=== PATIENT | male | born 1950 | race Caucasian/White ===

== ENCOUNTER 2022-10-02 10:22 | Day surgery (SDC) | payer MEDICARE, BC, SELFPAY ==
[2022-10-02] MEDS: KETOROLAC OPHTH 0.5% 1 DROP EYE-LEFT ×2 (10:35→10:40)
[2022-10-02] MEDS: TETRACAINE 0.5% OPHTH 1 DROP EYE-LEFT ×2 (10:35→10:40)
[2022-10-02 10:44] VITALS: BMI 29.7
[2022-10-02 11:05] VITALS: BP 162/89; PULSE 72; RESP 20; TEMP 36.8; O2SAT 96
[2022-10-02] MEDS: SODIUM CHLORIDE 0.9 % (FLUSH) 10 ML SYRINGE IVF (11:07)
[2022-10-02] MEDS: TETRACAINE 0.5% OPHTH 2 DROP EYE-LEFT (11:28)
--- NOTE | 2022-10-02 11:32 | P.ANES_ITS ---
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
[2022-10-02] MEDS: BALANCED SALT IRRIG SOLN 15 ML EYE-LEFT (11:33)
--- NOTE | 2022-10-02 11:36 | W.ANESCHARGE ---
Anesthesia Charges Start Date/Time Anesthesia Start Date: 10/02/22 Anesthesia Start Time: 11:25 Stop Date/Time Anesthesia Stop Date: 10/02/22 Anesthesia Stop Time: 12:00 Summary Extremes of Age - Over 70 or under 1: MDA
[2022-10-02 12:08] VITALS: BP 118/73; PULSE 62; RESP 16; TEMP 36.3; O2SAT 98
--- NOTE | 2022-10-02 12:48 | P.OPTPRC_ITS ---
Procedure Note Date of procedure: 10/02/22 Will [facility] bill your pro fee for this procedure?: Yes Procedure Description: SURGEON: Deysi De Jesus MD PREOPERATIVE DIAGNOSIS: Nuclear sclerotic cataract, left eye. POSTOPERATIVE DIAGNOSIS: Nuclear sclerotic cataract, left eye. NAME OF OPERATION: Phacoemulsification of cataract with posterior chamber intraocular lens implantation in the left eye. ANESTHESIA: Topical. ESTIMATED BLOOD LOSS: Less than 2 cc. COMPLICATIONS: None. PATHOLOGY SPECIMEN: None. INDICATIONS: See consult note for details. The risks, benefits and alternatives of the procedure were explained to the patient, who elected to proceed and sign ed informed consent to do so. PROCEDURE: The patient was brought to the pre-holding area where the left eye was identified as the operative eye. I placed my initials above this eye. The patient received eye drops consisting of 0.5% tetracaine, 1% tropicamide, 10% phenylephrine, and 0.5% ketorolac. The patient was then brought to the operating room where the left eye was again identified as the operative eye. The eye was prepped with Betadine and draped in the usual sterile ophthalmic fashion. A #15 super-sharp blade was used to create a paracentesis site. 1% non-preserved intracameral lidocaine was injected into the anterior chamber. Endocoat was injected into the anterior chamber. A 2.4 mm keratome was used to create a three-plane self-sealing incision 1 mm anterior to the temporal limbus. A cystotome was used to create an anterior capsular leaflet. The Utrata forceps were used to extend this to form a continuous curvilinear capsulorrhexis. Hydrodissection was performed. The cataract was removed with phacoemulsification using the [id number]-[id number] technique. The irrigation and aspiration tip was used to remove the remaining cortex. Healon was injected into the capsular bag. An KATLYN ZCB00 intraocular lens of 17.5 diopters was injected into the capsular bag. The irrigation and aspiration tip was used to remove the remaining viscoelastic. Balanced salt solution on a cannula was used to hydrate the wound, and the wound was found to be watertight. The pupil was noted to be round. DISPOSITION: The patient was taken to the recovery room and discharged to home in stable condition. The patient was instructed to call me or go to the emergency department with any sudden change, including dramatic loss of vision, severe pain in the eye or eyebrow region, nausea, or vomiting. The patient will follow up in the clinic tomorrow morning.
== END 2022-10-02 12:25 | disposition home or self-care (01) ==
LOC: OR 10:24
PROVIDERS: PCP Family Medicine; Visit Provider Ophthalmology
PROC: (CPT 66984; principal; 2022-10-02 10:30)
DX: H25.12 Age-related nuclear cataract, left eye (principal)
CPT/HCPCS: 66984; 00142; 99100; A9270; J2250; J3010; V2632

== ENCOUNTER 2022-10-16 09:40 | Day surgery (SDC) | payer MEDICARE, BC, SELFPAY ==
[2022-10-16] MEDS: TETRACAINE 0.5% OPHTH 1 DROP EYE-RIGHT ×2 (09:45→09:50)
[2022-10-16] MEDS: KETOROLAC OPHTH 0.5% 1 DROP EYE-RIGHT ×2 (09:45→09:50)
[2022-10-16] MEDS: SODIUM CHLORIDE 0.9 % (FLUSH) 10 ML SYRINGE IVF (10:00)
[2022-10-16 10:02] VITALS: BMI 29.7
[2022-10-16 10:08] VITALS: BP 125/84; PULSE 64; RESP 16; TEMP 36.4; O2SAT 97
--- NOTE | 2022-10-16 10:46 | W.ANESCHARGE ---
Anesthesia Charges Start Date/Time Anesthesia Start Date: 10/16/22 Anesthesia Start Time: 10:46 Stop Date/Time Anesthesia Stop Date: 10/16/22 Anesthesia Stop Time: 11:19 Summary Extremes of Age - Over 70 or under 1: MDA
[2022-10-16] MEDS: TETRACAINE 0.5% OPHTH 2 DROP EYE-RIGHT (10:49)
[2022-10-16] MEDS: BALANCED SALT IRRIG SOLN 15 ML EYE-RIGHT (10:54)
--- NOTE | 2022-10-16 11:19 | W.ANESCHARGE ---
Anesthesia Charges Start Date/Time Anesthesia Start Date: 10/16/22 Anesthesia Start Time: 10:46 Stop Date/Time Anesthesia Stop Date: 10/16/22 Anesthesia Stop Time: 11:19
--- NOTE | 2022-10-16 11:24 | W.PM.OPTPROC ---
Procedure Note Date of procedure: 10/16/22 Will [facility] bill your pro fee for this procedure?: Yes Procedure Description: SURGEON: Deysi De Jesus MD PREOPERATIVE DIAGNOSIS: Nuclear sclerotic cataract, right eye. POSTOPERATIVE DIAGNOSIS: Nuclear sclerotic cataract, right eye. NAME OF OPERATION: Phacoemulsification of cataract with posterior chamber intraocular lens implantation in the right eye. ANESTHESIA: Topical. ESTIMATED BLOOD LOSS: Less than 2 cc. COMPLICATIONS: None. PATHOLOGY SPECIMEN: None. INDICATIONS: See consult note for details. The risks, benefits and alternatives of the procedure were explained to the patient, who elected to proceed and signed informed consent to do so. PROCEDURE: The patient was brought to the pre-holding area where the right eye was identified as the operative eye. I placed my initials above this eye. The patient received eye drops consisting of 0.5% tetracaine, 1% tropicamide, 10% phenylephrine, and 0.5% ketorolac. The patient was then brought to the operating room where the right eye was again identified as the operative eye. The eye was prepped with Betadine and draped in the usual sterile ophthalmic fashion. A #15 super-sharp blade was used to create a paracentesis site. 1% non-preserved intracameral lidocaine was injected into the anterior chamber. Endocoat was injected into the anterior chamber. A 2.4 mm keratome was used to create a three-plane self-sealing incision 1 mm anterior to the temporal limbus. A cystotome was used to create an anterior capsular leaflet. The Utrata forceps were used to extend this to form a continuous curvilinear capsulorrhexis. Hydrodissection was performed. The cataract was removed with phacoemulsification using the fwywrf-doy-fqalrnd technique. The irrigation and aspiration tip was used to remove the remaining cortex. Healon was injected into the capsular bag. An KATLYN ZCB00 intraocular lens of 16.5 diopters was injected into the capsular bag. The irrigation and aspiration tip was used to remove the remaining viscoelastic. Balanced salt solution on a cannula was used to hydrate the wound, and the wound was found to be watertight. The pupil was noted to be round. DISPOSITION: The patient was taken to the recovery room and discharged to home in stable condition. The patient was instructed to call me or go to the emergency department with any sudden change, including dramatic loss of vision, severe pain in the eye or eyebrow region, nausea, or vomiting. The patient will follow up in the clinic tomorrow morning.
[2022-10-16 11:32] VITALS: BP 117/81; PULSE 58; RESP 16; TEMP 36.1; O2SAT 97
== END 2022-10-16 11:35 | disposition home or self-care (01) ==
PROVIDERS: PCP Family Medicine; Visit Provider Ophthalmology
PROC: (CPT 66984; principal; 2022-10-16 09:45)
DX: H25.11 Age-related nuclear cataract, right eye (principal)
CPT/HCPCS: 66984; 00142; 99100; A9270; J2250; J3010; V2632

== ENCOUNTER 2024-03-26 09:45 | Outpatient (RCR) | payer MEDICARE, BC, SELFPAY | END 2024-07-24 23:59 | disposition home or self-care (01) | PROVIDERS: PCP Family Medicine; Visit Provider Family Medicine | DX: M54.50 Low back pain, unspecified (principal); Z51.89 Encounter for other specified aftercare | CPT/HCPCS: 97110; 97140; 97162 ==

== ENCOUNTER 2024-06-01 20:43 | Emergency (ER) | payer MEDICARE, BC, SELFPAY ==
--- OUTSIDE RECORDS SUMMARY | 2024-06-01 20:45 | XMS_ITS | Clinical Summary ---
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 Medications No information available. Medications Administered No information available. Allergies, Adverse Reactions, Alerts No information available. Results Date Name Value Unit Range Flag Description Internal Other: Authorizatio n - OBS [email or web address] Yes Authoriza tion: Release of Information - Authorize [facility] - Payment and Healthcare Operations ROIAUTHOTHER Yes Authoriz ation: Release of Information - Authorize Others/Insurance - Payment and Healthcare Operations HIECONSENT Yes Consent To Release information to the Health Information Exchange (HIE) [email or web address] Yes Authorizat ion: Authorization for [facility] to leave messages, voicemail, send text messages, send emails AUTHRELHCARE Yes Authoriz ation: Release/Retrieval of Information to/from Healthcare Facilities, Pharmacy Benefit Payers and Providers AUTHPRIVPRAC Yes Authoriz ation: Notice of privacy practices AUTHBENEFIT Yes Authoriza tion: Assignment of Benefits and Payment Agreement Plan of Care No information available. Procedures Code Procedure Name Date Entry Date [id number]-96052 Nerve Conduction 7-8 studies [id number] EMG with NCS (5+ muscles) - 2 limbs 03/15 Vital Signs No information available. Immunizations No information available. Advance Directives No information available.
--- OUTSIDE RECORDS SUMMARY | 2024-06-01 20:45 | XMS_ITS | Data Portability ---
Author Organization [facility] Address [address] [place] [address] Care Team Providers Care Banking Manager Name Role Phone PATRICK DAVIS Primary Care Provider Assessment Encounter Date Assessment Date Assessment LastModified by Organization Details LastModified Time 06/04/2023 06/04/2023 72 yoM with elevated PSA, urinary frequency, urinary urgency. New diagnosis of Prostate Cancer Not available 06/04/2023 18:48:31 Plan of Treatment Reminders Order Date Submit Date Provider Last Modified By Organization Details Last Modified Time Details Appointments ESTABLI SHED 10 2024 11:30A M Dav fofana MD Not available Not available Not available Lab None recorde d. Referral radiati on oncolog ist referra l 2023 024 lani Whitaker MD, [address] [place], [address], 07/02/2023 11:36:[address] referra l 2023 024 lani Conde MD, [address] [place], [address], 07/02/2023 11:36:59 Procedures None recorde d. Surgeries prostat ectomy with bilater al pelvic lymph node dissect ion, robot assiste d laparos copic (SURG) 2023 024 [email or web address] Not available 07/03/2023 09:43:[address], abdomen + pelvis, w/ contras t 2023 [facility], [address], [place], [address], 06/18/2023 15:35:40 NM, bone scan, whole body 2023 [facility], [address], [place], [address], 06/18/2023 15:35:40 Medication Orders gentami emily 40 mg/mL injecti on solutio n 2023 [address] [place] [address] [place], [address], 06/04/2023 12:27:19 Patient TargetsNo targets recorded. Patient Instructions Encounter Date Encounter Id Patient Instructions Last Modified By Organization Details Last Modified Time 05/21/2023 [id number] Fourteen cores t cayden today, patient tolerated the procedure well. We reviewed return precautions, which include fever/chills/malaise. He will stay hydrated and alert his medical team of any issues with his recovery. I want to him to report to either Dr. Edge or myself in 2-3 weeks for biopsy results and next steps. Not available 05/21/2023 12:42:43 06/04/2023 [id number] I had a very nicole gthy discussion for over an hour with patient who was {{unaccompanied accom panied*}} regarding the characteristics of his high risk prostate cancer prostate cancer and the risks, benefits, rationale, implications and alternatives of the various management options. We discussed how patient's clinicopathologic characteristics including his prostate specific antigen level, digital rectal exam findings and biopsy grade place him in the high risk category according to NCCN criteria (PSA >20 ng/mL or isabel grade group 4/5 or clinical stage T3a or greater). We discussed about which treatments to use for prostate cancer at high risk for relapse depends on many factors, including technical issues, such as whether it is safe for the man to undergo an operation and whether the prostate is the appropriate size and in the appropriate position for radiation therapy. I spent considerable amount of time with patient emphasizing the limitations of currently available literature and guidelines and the absence of any randomized studies comparing surgery to radiation in men with intermediate- or high-risk prostate cancer; therefore, there is no clear answer about which approach is more likely to cure the disease. Perhaps most importantly, we spent significant time discussing the inordinately high biochemical relapse rate (as high as >50% in some series) following definitive treatment with curative intent in the high-risk prostate cancer cohort. While surgery or radiation may provide local control in the vast majority and even cure in select patients, the overwhelming majority of patients will still require some form of adjuvant therapy following either surgery or radiotherapy. I discouraged patient from considering primary androgen deprivation therapy since it is not curative and is associated with multiple side effects, such as hot flashes, osteoporosis, decreased libido, erectile dysfunction, and a potentially higher risk of diabetes and heart disease. I only briefly discussed the limited role of both active surveillance and focal therapy, neither of which are indicated in the management of high-risk prostate cancer. I strongly discouraged patient from pursuing either of these options given his inordinately high risk of prostate cancer disease progression and extraprostatic disease, respectively. We spent the bulk of our time discussing two major therapeutic options, which include radical prostatectomy and radiation therapy. We discussed the rationale of radical prostatectomy performed via either a robotic or open technique. The concepts of the surgery are removal of the pelvic lymph nodes and prostate, with nerve-sparing as deemed appropriate. These have both diagnostic and therapeutic intent. An important but evolving area of study is whether extended lymph-node dissection will improve the staging and curing of prostate cancer. When performed robotically, the operation is carried out through six small incisions and a 2.5-4 hour surgery associated with minimal blood loss, an overnight hospital stay, and 5-7 days of Espino catheterization. Major risk of the surgery are rare but do include bleeding, infection, adjacent organ injury, lymphocele, positive margins, severe pain and standard operative risks such as myocardial infarction, stroke, DVT, pneumonia, PE and even a 0.2% chance of . We discussed urinary incontinence following surgery. Approximately 10-20% of men will have nearly complete control of their urination when the catheter is removed, the median time to recovery is approximately 3-4 months but can take up to 12-18 months. Based on currently available data, approximately 96% of men will have excellent control of urination at one year following surgery. In regards to sexual function, I explained the median time to recovery of functional erections is 6-8 months but can take up to 18 months. Compared to low and select intermediate-risk prostate cancer patients who are candidates for aggressive bilateral nerve-sparing approaches, most high-risk patients are not candidates due to their high-grade, high-volume disease and primary intent of cure. Therefore, high-risk men undergoing [id number] radical prostatectomy may be at higher risk of postoperative erectile dysfunction. Furthermore, patient's baseline erectile function as measured by his International Index of Erectile Function questionnaire {{22-25: None* 17-21: Mild 12-16: Mild-Moderate 8-11: Moderate 1-7: Severe}} remains the single strongest predictor of eventual long-term erectile function. Following surgery, the PSA is expected to remain undetectable, but if it does rise there is a possibility of salvage curative radiation therapy, if deemed appropriate. We also discussed the rationale of radiation therapy, namely external beam radiation therapy combined with at least 18-36 months of concurrent androgen deprivation therapy. Radiation has been the most commonly used approach in men with high-risk prostate cancer, in part because of a concern that surgery may not be able to remove all the cancer in the prostate in some men. In all high-risk cases, hormone therapy is used with radiation therapy because this combination has been shown to be helpful in treating men who are at high risk for relapse. There is an excellent track success but can be associated with potential side effects which include urinary urgency, frequency, urethral stricture as well as the potential for erectile dysfunction and rectal irritation or frequency of bowel movements. I explained there is an approximately 2% chance of serious bladder or rectal toxicity as well as a very low risk of inducing a secondary malignancy. The potential downside of radiation is complete pathologic review and lack of reliable salvage curative options. Given patient's high risk disease and life-expectancy > 5 years, we discussed the indications for both nuclear medicine bone scan and abdominopelvic cross sectional imaging including advanced clinical stage (>cT2), Isabel score >8, prostate specific antigen > 10 ng/mL and probability of lymph node involvement > 10%. He will be scheduled for both a bone scan and CT abdomen/pelvis prior to follow-up. At the completion of our discussion, multiple questions with answered to the best of my ability. Patient was provided with a copy of his pathology report as well the [facility] ([facility] [place] [facility] Becca nomogram predicting his probability of disease extent, risk of recurrence and progression. Patient was also encouraged to seek a second opinion both with an outside Urologist as well as radiation oncologist to better assist him in his decision making. He appears to be very well informed about his cancer as well as the options. I explained to him that there is no matta in making a decision, and the most important thing is that he feels comfortable and educated regarding his options and ultimate choice. 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 Large gland, bothersome LUTS. Previous colorectal surgery, advanced age. I had a long discussion (at least a total of 30 minutes was spent in direct counseling) regarding the diagnosis of prostate cancer and its treatment options. I told him that prostate cancer is the most common non-integumental cancer in men in the [place] and that with PSA screening and emerging public awareness of the disease, prostate cancer is being diagnosed with greater frequency and at an earlier stages. We briefly discussed the challenges regarding PSA screening for prostate cancer. We discussed the treatment options for localized disease, reviewing the potential complications and advantages of each therapeutic modality. We discussed that for some men, watchful waiting or active surveillance may be an appropriate option. Prostate cancer can often behave in an indolent manner, and for those who have other comorbidities or advanced age, simply following the patient and reserving treatment for clinical symptoms may be the best option. Unfortunately, we cannot be certain which cancers will behave in this manner and which ones will be more aggressive. There is a risk of spread of the cancer and continued local growth if the cancer is not treated. This risk varies with grade and stage of disease at diagnosis, as well as possibly mutational information, co-morbidities and demographic information. We then discussed radiation therapy, both as external beam and interstitial brachytherapy. We talked about the potential side effects of radiation cystitis, radiation proctitis, impotence, fistula formation, and incontinence. We then discussed extirpation, specifically radical prostatectomy. This can be performed either open or robotic-assisted laparoscopically, with similar outcomes. We reviewed that there is a risk of bleeding requiring blood transfusion (about 5%), infection, wound complications, rectal injury, DVT/PE, erectile dysfunction (20-70%), bladder neck contracture (3%) and incontinence (severe enough to require further therapy in 3-5% at one year). One advantage of surgery is that we would be able to analyze the specimen and the regional lymph nodes, thereby knowing the true pathologic stage of the disease. This could allow us to better understand his prognosis, and guide decisions regarding adjuvant therapies such as radiation or hormone therapy. We also discussed other technologies, such as cryotherapy and proton beam therapy, though it is still too early to know what the long-term outcomes are for these treatments. I reviewed with the patient my opinion about HIFU, which at this time has a very narrow therapeutic value, and should be employed within the context of a study or conglomerated observation team. We discussed the surgical experience and perioperative management. I believe that he would be an appropriate candidate for a robotic-assisted laparoscopic approach utilizing the [employer] robotic system. He would have a catheter in place for about 7-10 days. A drain may be placed and removed prior to his discharge from the hospital, typically in about 1-2 days. I warned the patient that it is common to have some incontinence immediately after the catheter is removed, but this usually quickly improves. By 6 months, 80% of patients will have regained their continence, and nearly all patients by 1 year. I advocate strongly for PFPT to aid in resolution of post-prostatectomy incontinence. We also touched upon management for persistent incontinence, should that be a problem, including pads, artificial sphincters, and injectable therapies. Erectile function may take 1, even 2-3 years to improve, though this is variable. We reviewed my recommendation for aggressive post surgical penile rehabilitation. We talked about some of the treatments for erectile dysfunction, including oral therapies, injections, pump, and penile prosthetics. Postoperatively, I would continue to follow him at regular intervals with PSA s and exams to ensure that the prostate cancer does not come back, no matter which primary therapy is chosen. We discussed Fidencio's aforementioned risk factors for suboptimal outcome/recovery from RALP. He is leaning towards surgery, all questions answered. Not available 07/01/2023 17:12:38 08/29/2023 [id number] Remarkable recov fabi, good news on the path report, reviewed. Espino out, blaze out, discussed expectations, will begin PFPT soon, with me in 3 months. Not available 08/29/2023 14:04:09 03/26/2024 [id number] INOCENTE savanaFidencio made a remarkable recovery. I want to see him in 4 months for his 1 year visit. Not available 03/26/2024 13:12:39 Reason for Referral Referring Physician: John Paul Edge, Urology, Encounter Date: 06/04/2023 Urologist Referral for Malig nant tumor of prostate Referring Physician: John Paul Edge, Urology, Encounter Date: 06/04/2023 Results Created Date Observation Date Name Description Value Unit Range Abnormal Flag Note LastModifiedBy Organization Detail LastModifiedTime 06/24/19 24 2023 imagi ng/di agnos tic resul t No observ ation record ed. [facility] [address] [place], [address], 06/30/2023 15:22:13 06/24/19 24 2023 imagi ng/di agnos tic resul t No observ ation record ed. [facility] [address] [place], [address], 06/30/2023 15:22:13 Result Notes None recorded. Problems Name Problem SNOMED Code Status Onset Date Resolution Date Notes Provider Name and Address Organization Details Recorded Time Prostate specific antigen above reference range 861834313 Active 2011 R97.20 : Elevated prostate specific antigen [PSA] - Notes:his tory elevated PSA with negative biopsy DR Hopson 2007 Not Available [facility] 01:56:04 Malignant tumor of prostate 720928254 Active 2023 Dav Baird MD [address] [place] [address],[address], [address] , [facility] 4 17:10:46 Lower urinary tract symptoms due to benign prostatic hypertrop hy 42490538978 101 Active 2023 Dav Baird MD [address] [place] [address],[address], [phone] [place] [address] Urolog 17:10:59 Problem Notes None recorded. Procedures Surgical History Date Name Laterality Status Provider Name and Address Organization Details Recorded Time 08/06/19 24 PROSTATECTOMY WITH BILATERAL PELVIC LYMPH NODE DISSECTION, ROBOT ASSISTED LAPAROSCOPIC (SURG) completed Linda Levilindsey [facility] 08/22/2023 14:41:53 07/01/19 24 COMPLEX VISIT completed Dav Baird MD [address] [place] [address],[address] [address], [facility] 07/01/2023 17:10:40 05/21/19 24 Prostate Biopsy Procedure completed Dav Baird MD [address] [place] [address],[facility] [address] [place], [address] [place] [address] 05/21/2023 12:42:04 05/21/19 24 Gentamicin Injection completed Cindy Mobley [facility] 05/21/2023 10:27:31 05/21/19 24 URONAV completed Dav Baird MD [address] [place] [address],[address], [address], [facility] 05/21/2023 12:42:10 procedure on colon completed Delma Fairchild [facility] 02/26/2023 14:12:04 Hernia Repair completed Delma Fairchild [facility] 02/26/2023 14:12:13 Imaging Results Imaging Date Name Status LastModified by Organiz ation Details LastModified Time 2023 imaging/diag nostic result completed [facility] [address] [place] [address], [address], 06/30/2023 15:22:13 2023 imaging/diag nostic result completed [facility] [address], [address], 06/30/2023 15:22:13 Procedure Notes None recorded. Medical Equipment None Reported. Allergies Allergen ID Allergen Name Allergen Category Reaction Reaction Severity Criticality Documentation Date Start Date Code Code System Note Provider Name and Address Organization Details Recorded Time 040290 Medicinal product acting as adhesive (product) environme nt,medica tion Not available Not available Not available 09/02/20192014 86913 2009 SNOMED Not Available Not Available Not Available 456883 latex environme nt,medica tion Not available Not available Not available 09/02/20192014 09276 91 RxNorm Not Available Not Available Not Available 659188 Product containin g penicilli n (product) medicatio n Not available Not available Not available 09/02/20192011 49925 8001 SNOMED Not Available Not Available Not Available Medications Name Sig Start Date Stop Date Status Note LastModified by Organization Details LastModified Time flowflex covid-19 ag home t DIRECTED 06/03 completed Not Available Not Available Not Available azithromyci n 250 mg tablet TAKE 2 TABLETS BY MOUTH TODAY THEN 1 TABLET DAILY FOR 4 DAYS 06/03 completed Not Available Not Available Not Available ofloxacin 0.3 % eye drops INSTILL 1 DROP INTO THE OPERATIVE EYE FOUR TIMES A DAY STARTING FRIDAY BEFORE SURGERY. 06/03 completed Not Available Not Available Not Available sumatriptan 50 mg tablet TAKE 1 TABLET (50 MG) BY MOUTH EVERY 2 HOURS IF NEEDED FOR MIGRAINE. MAX DOSE: 200MG PER 24 HRS. 03/26 completed Not Available Not Available Not Available Enema Disposable 19 gram-7 gram/118 mL INSERT BY RECTAL ROUTE THE MORNING OF THE BIOPSY. 06/03 completed Not Available Not Available Not Available ciprofloxac in 500 mg tablet 03/26 completed Not Available Not Available Not Available aspirin 81 mg tablet,jeimy yed release Take 1 tablet every day by oral route. 03/26 completed Not Available Not Available Not Available ketorolac 0.5 % eye drops INSTILL 1 DROP INTO THE OPERATIVE EYE FOUR TIMES A DAY STARTING AFTER SURGERY. 06/03 completed Not Available Not Available Not Available potassium chloride ER 20 mEq tablet,exte nded release(par t/cryst) TAKE 1 TABLET (20 MEQ) BY MOUTH TWO TIMES DAILY WITH MEALS. 03/26 completed Not Available Not Available Not Available prednisolon e acetate 1 % eye drops,suspe nsion INSTILL 1 DROP INTO THE OPERATIVE EYE FOUR TIMES A DAY STARTING AFTER SURGERY. 06/03 completed Not Available Not Available Not Available olopatadine 0.1 % eye drops PLACE 1 DROP INTO BOTH EYES TWO TIMES DAILY. 06/03 completed Not Available Not Available Not Available hydrochloro thiazide 25 mg tablet TAKE 1 TABLET (25 MG) BY MOUTH ONCE DAILY. 03/26 completed Not Available Not Available Not Available Pepcid 20 mg tablet Take 1 tablet as needed by oral route. active Not Available Not Available No t Available levofloxaci n 500 mg tablet TAKE ONE TABLET BY MOUTH DAILY FOR 3 DAYS STARTING THE DAY BEFORE THE PROCEDURE 06/03 completed Not Available Not Available Not Available gentamicin 40 mg/mL injection solution Take 240 mg by injection route. 06/03 completed Not Available Not Available Not Available albuterol sulfate HFA 90 mcg/actuati on aerosol inhaler INHALE 2 PUFFS BY MOUTH EVERY 4 HOURS WHILE AWAKE. active Not Available Not Available No t Available losartan 100 mg tablet TAKE 1 TABLET (100 MG) BY MOUTH ONCE DAILY. 03/26 completed Not Available Not Available Not Available ipratropium bromide 21 mcg (0.03 %) nasal spray INHALE 2 SPRAYS INTO EACH NOSTRIL 3 TIMES DAILY. 03/26 completed Not Available Not Available Not Available rosuvastati n 20 mg tablet TAKE 1 TABLET (20 MG) BY MOUTH AT BEDTIME. active Not Available Not Available No t Available Vitamin C 03/26 completed Not Available Not Available Not Available Fish Oil 03/26 completed Not Available Not Available Not Available Imitrex 03/26 completed Not Available Not Available Not Available Colace 03/26 completed Not Available Not Available Not Available Claritin 03/26 completed Not Available Not Available Not Available Vitamin D 03/26 completed Not Available Not Available Not Available Tylenol as needed 03/26 completed Not Available Not Available Not Available potassium 06/03 completed Not Available Not Available Not Available Zyrtec active Not Available Not Availa ble Not Available Miralax as needed 03/26 completed Not Available Not Available Not Available Multi Vitamin 03/26 completed Not Available Not Available Not Available losartan potassium (bulk) 06/03 completed Not Available Not Available Not Available albuterol 90 mcg-budeson rox 80 mcg/actuati on HFA aerosol inhaler Inhale by inhalatio n route. active Not Available Not Available No t Available Vitals Date Recorded Body height Body mass index (BMI) Body weight Provider Name and Address Organization Details Last Updated DateTime 05/21/2023 177.8 cm 30.8 kg/m2 42305.36 g Cindy Lambbel [facility] 05/21/2023 10:26:07 Date Recorded Body height Body mass index (BMI) Body weight Provider Name and Address Organization Details Last Updated DateTime 06/04/2023 177.8 cm 30.8 kg/m2 30093.36 g Delma Fairchild [facility] 06/04/2023 12:27:13 Date Recorded Body height Body mass index (BMI) Body weight Provider Name and Address Organization Details Last Updated DateTime 07/01/2023 177.8 cm 30.8 kg/m2 05596.36 g Dav Baird MD [address] [place] [address],[address], [address] 07/01/2023 16:02:29 Date Recorded Body height Body mass index (BMI) Body weight Provider Name and Address Organization Details Last Updated DateTime 08/29/2023 177.8 cm 30.1 kg/m2 43879.4 g Dav Baird MD [address] [place] [address],[address], [address] [place] [address] 08/29/2023 12:37:27 Date Recorded Body height Body mass index (BMI) Body weight Provider Name and Address Organization Details Last Updated DateTime 03/26/2024 177.8 cm 30.1 kg/m2 77595.4 g Linda Mustafa [facility] 03/26/2024 12:36:11 Social History Question Answer Notes LastModified by Organizat ion Details LastModified Time Tobacco Smoking Status Never Smoker Delma Fairchild [facility] 02/26/2023 14:11:49 What Is Your Level Of Alcohol Consumption? Occasional Information not available 02/26/2023 Race White Information no t available 05/21/2023 Ethnicity Not / Information not available 05/21/2023 Preferred Language Japanese Information not available 05/21/2023 What Was The Date Of Your Most Recent Tobacco Screening? 03/26/2024 john Information not available 03/26/2024 Has Tobacco Cessation Counseling Been Provided? No Information not available 02/26/2023 Do You Or Have You Ever Used Any Other Forms Of Tobacco Or Nicotine? No Information not available 02/26/2023 How Many Days In The Past Year Have You Consumed 5 Or More Drinks? 0 Information not available 02/26/2023 Sex: Male Functional Status None recorded. Mental Status None recorded. Family History Relationship Description Onset Age of this Age Resolved Age Notes LastModified by Organization Details LastModified Time Brother Family history of malignant neoplasm of prostate rstromquist Not available 02/14 14:11:12 Medical History Condition Response Other Y High Blood Pressure Y Cancer Y High Cholesterol Y Immunizations Vaccine Type Date Status Note Provider Nam e and Address Organization Details Recorded Time Influenza, adjuvanted, trivalent, PF 7 completed Delma Stromquist null, [facility] 02/26/2023 14:07:19 Influenza, adjuvanted, trivalent, PF 8 completed Delma Stromquist null, [facility] 02/26/2023 14:07:19 zoster recombinant 9 completed Delma Stromquist null, [facility] 02/26/2023 14:07:19 zoster recombinant 9 completed Delma Stromquist null, [facility] 02/26/2023 14:07:19 Influenza, high-dose, quadrivalent, PF 2 completed Delma Stromquist null, [facility] 02/26/2023 14:07:19 Influenza, high-dose, quadrivalent, PF 3 completed Delma Stromquist null, [facility] 02/26/2023 14:07:19 Influenza, adjuvanted, quadrivalent, PF 0 completed Delma Stromquist null, [facility] 02/26/2023 14:07:19 Influenza, adjuvanted, quadrivalent, PF 1 completed Delma Stromquist null, [facility] 02/26/2023 14:07:19 COVID-19, mRNA, LNP-S, PF, 100 mcg/0.5mL dose or 50 mcg/0.25mL dose 1 completed Delma Stromquist null, [facility] 02/26/2023 14:07:19 COVID-19, mRNA, LNP-S, PF, 100 mcg/0.5mL dose or 50 mcg/0.25mL dose 1 completed Delma Stromquist null, [facility] 02/26/2023 14:07:19 COVID-19, mRNA, LNP-S, PF, 100 mcg/0.5mL dose or 50 mcg/0.25mL dose 2 completed Delma Stromquist null, [facility] 02/26/2023 14:07:19 COVID-19, mRNA, LNP-S, PF, 100 mcg/0.5mL dose or 50 mcg/0.25mL dose 1 completed Delma Stromquist null, [facility] 02/26/2023 14:07:19 COVID-19, mRNA, LNP-S, bivalent, PF, 50 mcg/0.5 mL or 25mcg/0.25 mL dose 2 completed Delma Stromquist null, [facility] 02/26/2023 14:07:19 COVID-19, mRNA, LNP-S, bivalent, PF, 30 mcg/0.3 mL dose 3 completed Delma Stromquist null, [facility] 02/26/2023 14:07:19 COVID-19, mRNA, LNP-S, PF, 50 mcg/0.5 mL 3 completed Delma Stromquist null, [facility] 02/26/2023 14:07:19 pneumococcal polysaccharide PPV23 0 completed Delma Stromquist null, [facility] 02/26/2023 14:07:19 pneumococcal polysaccharide PPV23 7 completed Delma Stromquist null, [facility] 02/26/2023 14:07:19 Tdap 1 completed Delma Stromquist null, [facility] 02/26/2023 14:07:19 Tdap 1 completed Delma Stromquist null, [facility] 02/26/2023 14:07:19 Novel [id number], all formulations 9 completed Delma Stromquist null, [facility] 02/26/2023 14:07:19 Pneumococcal conjugate PCV 13 5 completed Delma Stromquist null, [facility] 02/26/2023 14:07:19 zoster live 0 completed Delma Stromquist null, [facility] 02/26/2023 14:07:19 Influenza, high-dose, trivalent, PF 6 completed Delma Stromquist null, [facility] 02/26/2023 14:07:19 Influenza, high-dose, trivalent, PF 5 completed Delma Stromquist null, [facility] 02/26/2023 14:07:19 Influenza, split virus, trivalent, preservative 2 completed Delma Stromquist null, [facility] 02/26/2023 14:07:19 Influenza, split virus, trivalent, preservative 3 completed Delma Stromquist null, [facility] 02/26/2023 14:07:19 Influenza, split virus, trivalent, preservative 0 completed Delma Stromquist null, [facility] 02/26/2023 14:07:19 Influenza, split virus, trivalent, preservative 9 completed Delma Stromquist null, [facility] 02/26/2023 14:07:19 Influenza, split virus, trivalent, preservative 4 completed Delma Stromquist null, [facility] 02/26/2023 14:07:19 Influenza, split virus, trivalent, preservative 8 completed Delma Stromquist null, [facility] 02/26/2023 14:07:20 Influenza, split virus, trivalent, preservative 3 completed Delma Stromquist null, [facility] 02/26/2023 14:07:20 Influenza, split virus, trivalent, preservative 5 completed Delma Stromquist null, [facility] 02/26/2023 14:07:20 Influenza, split virus, trivalent, preservative 7 completed Delma Stromquist null, [facility] 02/26/2023 14:07:20 Influenza, split virus, trivalent, preservative 6 completed Delma Stromquist null, [facility] 02/26/2023 14:07:20 Influenza, split virus, trivalent, PF 1 [facility] 02/26/2023 14:07:20 Td (adult), 2 Lf tetanus toxoid, preservative free, adsorbed 4 completed [facility], [facility] 02/26/2023 14:07:20 Influenza, split virus, quadrivalent, PF 4 completed [facility], [facility] 02/26/2023 14:07:20 Influenza, split virus, quadrivalent, PF 9 completed [facility], [facility] 02/26/2023 14:07:20 COVID-19, mRNA, LNP-S, PF, 50 mcg/0.5 mL 4 completed Dav Baird MD [address] [place] [address],[address], [address], [facility] 08/29/2023 12:37:31 RSV, recombinant, protein subunit RSVpreF, adjuvant reconstituted, 0.5 mL, PF 4 completed Linda chavez, [facility] 03/26/2024 12:36:20 COVID-19, mRNA, LNP-S, PF, 50 mcg/0.5 mL 4 completed Linda chavez, [facility] 03/26/2024 12:36:20 Influenza, high-dose, trivalent, PF 4 completed Linda chavez, [place] - [facility] 03/26/2024 12:36:20 Past Encounters Encounter ID Performer Location Encounter Start Date Encounter Closed Date Diagnosis/Indication Diagnosis SNOMED-CT Code Diagnosis ICD10 Code Diagnosis Note [id number] John Paul [facility] [address] [place] [address] 02/26/2023 14:03:50 02/27/2023 13:22:40 Prostate specific antigen above reference range 304328669 R97.20 - PSA continues to rise- Previous ExactVu biopsy negative, as well as two negative standard template biopsies.- Obtain prostate MRI, pending results we will consider additional biopsy Increased frequency of urination 755912791 R35.0 - AUA SS: 7 (QOL 1) - Not bothersome enough to warrant treatment at this time. Urgent chaitanya tom to urinate [id number] R39.15 - As above [id number] [facility] [address] [facility] [address] [place] [address] 05/21/2023 09:55:29 05/21/2023 12:44:18 Prostate specific antigen above reference range 272510276 R97.20 [id number] MD TRAVIS [facility] [address] [place] [address] 06/04/2023 12:13:06 06/05/2023 08:53:40 Prostate specific antigen above reference range [id number] R97.20 - PSA continues to rise- Previous ExactVu biopsy negative, as well as two negative standard template biopsies.- Now s/p UroNav biopsy with Isabel [employer] manager branch Increased frequency of urination 505945584 R35.0 - AUA SS: 7 (QOL 1) - Not bothersome enough to warrant treatment at this time. Urgent chaitanya tom to urinate [id number] R39.15 - As above Malignant tumor of prostate 109182629 C61 - Isabel Grade [employer] II manager branch, high risk group due to PSA >20 ng/mL by NCCN guidelines - Obtain Staging work up with Bone Scan and CT A/P- Will have him see Radiation oncology and meet with Dr. Baird to discuss radical prostatect stevenson- See discussion below [id number] MD Keara Padrona [address] [place] [address] 07/01/2023 15:53:21 07/02/2023 15:25:13 Malignant tumor of prostate 812263375 C61 Lower urin samy tract symptoms due to benign prostatic hypertrophy 1543001836 9101 N40.1 History of malignant neoplasm of colon [id number] Z85.038 [id number] Dav Baird MD [facility] [address] [place] [address] 08/29/2023 12:09:12 09/08/2023 11:50:17 Malignant tumor of prostate [id number] C61 [id number] Dav Baird MD [facility] [address] [place] [address] 03/26/2024 12:31:57 03/29/2024 15:06:28 Malignant tumor of prostate [id number] C61 Health Concerns Section Related Observation LastModified by Organization Detai ls LastModified Time None Recorded Concern Status LastModified by Organization Details LastModified Time None Recorded Advance Directives Directive None Recorded Payers Encounter Date Sequence Insurance Name Policy Number Policy Rodriguez Covered Member ID Ordriguez Member ID Guarantor Name 05/21/2023 1 [place] [employer] Fidencio R Rose Mary [id number] Fidencio R Rose Mary 05/21/2023 2 [place] [employer] Fidencio R Rose Mary [id number] Fidencio R Rose Mary 06/04/2023 1 [place] [employer] Fidencio R Rose Mary [id number] Fidencio R Rose Mary 06/04/2023 2 [place] Fidencio R Rose Mary [id number] Fidencio R Rose Mary 07/01/2023 1 [place] [employer] Fidencio R Rose Mary [id number] Fidencio R Rose Mary 07/01/2023 2 [place] Fidencio R Rose Mary [id number] Fidencio R Rose Mary 08/29/2023 1 [place] [employer] Fidencio R Rose Mary [id number] Fidencio Bazzi 08/29/2023 2 [place] Fidencio Bazzi [id number] Fidencio Fofana Rose Mary 03/26/2024 1 [place] [employer] Fidencio Bazzi [id number] Fidencio Bazzi 03/26/2024 2 [place] Fidencio Bazzi [id number] Fidencio Bazzi Notes Date Note Type Note Provider Name and Address Organization Details Recorded Time 05/21/2023 text/html 72M here for Uro darion guided prostate biopsy, for elevated PSA. Previous worked up including two standard template biopsies and an Exact Vu Prostate biopsy which all proved negative. His PSA has continued to increase, most recently 24.4 ng/mL. Voiding symptoms: urinary urgency, urinary frequency. MRI showed 88 gram gland, quickly enlarged, with a PIRADS 3 lesion in the TZ. Dav Baird MD [address] [facility],[address], [place], [address], [facility] 05/21/2023 12:42:53 06/04/2023 text/html Referred back to day for elevated PSA. Previous worked up including two standard template biopsies and an Exact Vu Prostate biopsy which all proved negative. His PSA has continued to increase, most recently 24.4 ng/mL. Voiding symptoms: urinary urgency, urinary frequency. 06/04/23:Here for follow up pathology review following UroNav biopsy with Dr. Baird. Pathology reveals standard template cores benign, but targeted biopsies of PIRADS 3 lesion reveal Isabel 3+4. Seen today with his who provides some of the history. John Paul Edge MD [address] [facility],[address], [place], [address], [facility] 06/04/2023 18:48:40 07/01/2023 text/html 73M presents for prostate cancer follow up. Recent Uronav biopsy (88 grams, PIRADS3) showed targeted Isabel 3+4. PSA is 24. CT/bone scan negative. Previous worked up including two standard template biopsies and an Exact Vu Prostate biopsy which all proved negative. His PSA has continued to increase, most recently 24.4 ng/mL.Voiding symptoms: urinary urgency, urinary frequency. Mixed QOL and dropping. PSHx includes low (descending colon?) colorectal cancer surgery - with primary rectal re-anastomosis 10+ years ago. Met with rad-onc team who is offering XRT with short course ADT, if the patient requests. Dav Baird MD [address] [place] [address],[address], [place], [address], [facility] 07/01/2023 17:13:38 08/29/2023 text/html 73M presents for prostate cancer follow up. He is s/p RALP 08/06/23, with considerable KWAKU, extraordinary recovery was marred by hemorrhagic shock, take back ex-lap, no active bleeding found, but possibly from omental/mesenteric portion of KWAKU takedown which bled in a delayed manner, full recovery, arrives today for path review and Espino removal. Final path: Isabel 3+4, negative margins, negative nodes. DIAGNOSIS HISTORY:Recent Uronav biopsy (88 grams, PIRADS3) showed targeted Isabel 3+4. PSA is 24. CT/bone scan negative.Previous worked up including two standard template biopsies and an Exact Vu Prostate biopsy which all proved negative. His PSA has continued to increase, most recently 24.4 ng/mL.Voiding symptoms: urinary urgency, urinary frequency. Mixed QOL and dropping.PSHx includes low (descending colon?) colorectal cancer surgery - with primary rectal re-anastomosis 10+ years ago. Dav Baird MD [address] [facility],[address], [place], [address], [facility] 08/29/2023 14:04:15 03/26/2024 text/html 73M presents for prostate cancer follow up. He is s/p RALP 08/06/23, with considerable KWAKU, extraordinary recovery was marred by hemorrhagic shock, take back ex-lap, no active bleeding found, but possibly from omental/mesenteric portion of KWAKU take down which bled in a delayed manner, full recovery. PSA undetectable. Nearly completely dry, scant leakage. Final path: Isabel 3+4, negative margins, negative nodes. DIAGNOSIS HISTORY:-Recent Uronav biopsy (88 grams, PIRADS3) showed targeted Isabel 3+4. PSA is 24. CT/bone scan negative.-Previous worked up including two standard template biopsies and an Exact Vu Prostate biopsy which all proved negative. His PSA has continued to increase, most recently 24.4 ng/mL.-Voiding symptoms: urinary urgency, urinary frequency. Mixed QOL and dropping.-PSHx includes low (descending colon?) colorectal cancer surgery - with primary rectal re-anastomosis 10+ years ago. Dav Baird MD [address] [facility],[address], [place], [address], [facility] 03/26/2024 13:12:49
--- OUTSIDE RECORDS SUMMARY | 2024-06-01 20:45 | XMS_ITS | Clinical Summary ---
Author Organization [facility] Address [address] [place] [address] Care Team Providers Care Contract Specialist Name Role Phone Unavailable Primary Care Provider Unavailabl e Source Comments Patient records contain information from all sites at [facility]. For routine questions regarding patient records, call [phone] during business hours, M-F 8:00 AM - 5:00 PM Central Time. Record requests for emergency care only can be directed to [phone] at any time.[facility] Allergies Active Allergy Reactions Criticality Noted Date Comments Latex Hives (Reselect Reaction) Medium 11/15/2009 Unsure If latex or if it was the adhesive (it was tape) (red blotchiness and swelling , unsure if it was hives); Also, though, swelling in hand from rubber-type iron handle.; itchy, swollen hands from latex gloves Penicillins Hives (Reselect Reaction) 08/27/2006 Medications albuterol 90 mcg/actuation inhaler Inhale 2 puffs every 4 (four) hours. 3 Active ascorbic acid, vitamin C, (ascorbic acid) 500 mg tablet Take by mouth. 7 Active aspirin [address] tablet Take 1 tablet by mouth daily. 9 Active cholecalciferol (VITAMIN D3) 25 mcg (1,000 Unit) capsule Take 1 capsule by mouth daily. 1 Active docusate sodium (COLACE) 100 mg capsule Take 1 capsule by mouth 2 (two) times a day. 4 Active famotidine (PEPCID) 20 mg tablet Take 20 mg by mouth. 9 Active hydroCHLOROthia zide (HYDRODIURIL) 25 mg tablet Take 1 tablet by mouth daily. 3 Active ibuprofen (MOTRIN) 600 mg tablet Take 600 mg by mouth every 6 (six) hours as needed. 0 Active loratadine (CLARITIN) 10 mg tablet Take 1 tablet by mouth daily. 9 Active losartan (COZAAR) 100 mg tablet Take 1 tablet by mouth daily. 3 Active melatonin 3 mg tablet Take 1 tablet by mouth at bedtime. 3 Active multivitamin tablet Take 1 tablet by mouth daily. 9 Active olopatadine (PATANOL) 0.1 % ophthalmic solution Administer 1 drop into affected eye(s) 2 (two) times a day. 3 Active potassium chloride (KLOR-CON M/KDUR) 20 mEq ER tablet Take 20 mEq by mouth. 3 Active rosuvastatin (CRESTOR) 20 mg tablet Take 1 tablet by mouth at bedtime. 3 Active SUMAtriptan (IMITREX) 50 mg tablet Take 50 mg by mouth every 2 (two) hours as needed. 3 Active Active Problems Problem Noted Date Diagnosed Date Malignant Neoplasm Of Colon 06/10/2023 Cancer Staging:Pathologic:Stage IIIA(T1, N1a, cM0) - Unsigned Primary Malignant Neoplasm Of Prostate 4 Cancer Staging:Clinical stage from 05/22/2023:Stage IIIA(cT1c, cN0, cM0, PSA: 24.4, Grade Group: 2) - Unsigned Family History Medical History Relation Name Comments Prostate cancer Brother 1 [facility] previous treatment Relation Name Status Comments Brother 1 Brother 2 Nael Bazzi Social History Tobacco Use Types Packs/Day Years Used Date Smoking Tobacco: Never Smokeless Tobacco: Never Alcohol Use Standard Drinks/Week Comments Yes 0 (1 standard drink = 0.6 oz pur e alcohol) [facility] Utilities Answer Date Recorded In the past 12 months has [employer], oil, or water [place] [employer] threatened to shut off services in your home? No 06/26/2023 Exercise Vital Sign Answer Date Recorde d On average, how many days pe r week do you engage in moderate to strenuous exercise (like a brisk walk)? 3 days Minutes of Exercise per Session Not on file 06/26/2023 Hunger Vital Sign Answer Date Recorded Within the past 12 months, y ou worried that your food would run out before you got the money to buy more. Never true 06/26/19 24 Within the past 12 months, t he food you bought just didn't last and you didn't have money to get more. Never true 06/26/2023 PRAPARE - Transportation Answer Date Re corded In the past 12 months, has l ack of transportation kept you from medical appointments or from getting medications? No 06/15 In the past 12 months, has l ack of transportation kept you from meetings, work, or from getting things needed for daily living? No 06/26/2023 Nutrition Answer Date Recorded On average, how many serving s of fruits and vegetables do you eat per day (serving size is equal to 1 cup or approximately the size of a tennis ball)? 0-2 06/26/2023 Dental Answer Date Recorded Dental: Regular Dentist Yes 06/26/19 Employment Answer Date Recorded Employment status Retired 06/26/2023 Housing Stability Answer Date Recorded What is your living situation today? I have a [facility] place to live 06/26/2023 Sex and Gender Information Value Date Recorded Sex Assigned at Male 06/26/2023 12:55 PM CDT Legal Sex Male 12:37 PM CDT Gender Identity Male 06/26/2023 12:55 PM CDT Sexual Orientation Straight 06/26/2023 12 :55 PM CDT Last Filed Vital Signs Vital Sign Reading Time Taken Comments Blood Pressure 133/83 06/26/2023 1:01 PM CDT Pulse 66 06/26/2023 1:01 PM CDT Temperature 36.7 C (98 F) 06/26/2023 1:01 PM CDT Respiratory Rate - - Oxygen Saturation - - Inhaled Oxygen Concentration - - Weight 99.3 kg (218 lb 14.7 oz) 06/26/2023 1:01 PM CDT Height - - Body Mass Index - - Plan of Treatment Health Maintenance Due Date Last Done Comments CT Colonography 1950 Cologuard 1950 Hepatitis C Screening 1950 COVID-19 Vaccine ( season) 2023 12/31/2022, 07/23/2022, 02/12/2022, Additional history exists Influenza Vaccine (#1) 2023 , 12/28/2021, 12/13/2020, Additional history exists Colonoscopy 01/27/2024 01/26/2019 Colorectal Cancer Surveillance 01/27/2024 Creatinine Level (Kidney Function Test) 01/28/2024 01/27/2023, 09/19/2022, 01/24/2022, Additional history exists Potassium Level 01/28/2024 01/27/2023, 07/0 08/2022, 01/24/2022, Additional history exists Sodium Level 01/28/2024 01/27/2023, 07/0 08/2022, 01/24/2022, Additional history exists Depression Screening (Annual PHQ-2) 03/17/2024 Fall Risk Screen (Annual) 03/17/2024 Fasting Glucose for Diabetes Screening 01/27/2026 01/27/2023, 09/19/2022, 01/24/2022, Additional history exists DTaP,Tdap,and Td Vaccines (3 - Td or Tdap) 01/22/2031 01/22/2021, 11/02/2010, 07/20/2003 Pneumococcal vaccine (50+ years) Completed 01/07/2017, 12/20/2014, 10/04/2009 Zoster Vaccines Completed 07/21/2018, 04/2018, 05/11/2018, Additional history exists IPV Vaccines Aged Out No longer eligi ble based on patient's age to complete this topic Insurance [address] [place] [id number] MEDICARE [facility]
--- OUTSIDE RECORDS SUMMARY | 2024-06-01 20:46 | XMS_ITS | Clinical Summary ---
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[employer] Name Role Phone Ariana Lao MD Primary Care Provide r Allergies Active Allergy Reactions Criticality Noted Date Comments Adhesive Hives 11/15/2009 Or possibly latex (it was a tape) Latex Hives Medium 11/15/2009 Unsure If latex or if it was the adhesive (it was tape) (red blotchiness and swelling , unsure if it was hives); Also, though, swelling in hand from rubber-type iron handle.; itchy, swollen hands from latex gloves Lisinopril Other - Describe In Comment Field 02/07/2010 POSSIBLE cause laryngospasm after gen anesthesia 12/24 Penicillins Hives 08/27/2006 Medications famotidine (PEPCID) 20 mg tabletIndications: History of gastroesophageal reflux (GERD) Take 1 tablet by mouth 2 times daily. As needed heartburn 60 tablet 3 019 Active Additional Information Patient taking differently:20 mg OralBID PRN, As needed heartburn, Reported on 05/31/2024 olopatadine (PATANOL) 0.1 % ophthalmic solutionIndication s:Itchy eyes Place 1 Drop into both eyes two times daily. 5 mL 023 Active Additional Information Patient taking differently:1 Drop Both EyesBID PRN, Reported on 05/31/2024 albuterol HFA (Ventolin HFA) 90 mcg/actuation inhaler Inhale 2 Puffs by mouth 4 times daily if needed for Shortness Of Breath. Active melatonin 5 mg tab tablet Take 1 Tablet (5 mg) by mouth at bedtime if needed for Sleep. Active ipratropium (ATROVENT NASAL) 21 mcg (0.03 %) nasal sprayIndications:P ostnasal drip Inhale 2 Sprays into affected nostril(s) three times daily. [place] dose in each nostril. 30 mL 024 Active Additional Information Patient taking differently:2 [place] NasalTID PRN, [place] dose in each nostril., Reported on 05/31/2024 SUMAtriptan (IMITREX) 50 mg tabletIndications: Medicare annual wellness visit, subsequent,Migrain e without aura and without status migrainosus, not intractable Take 1 Tablet (50 mg) by mouth every 2 hours if needed for Migraine. Max dose: 200mg per 24 hrs. 12 Tablet 5 024 Active losartan (COZAAR) 100 mg tabletIndications: HTN (hypertension) Take 1 Tablet (100 mg) by mouth once daily. 90 Tablet 3 025 Active rosuvastatin (CRESTOR) 20 mg tabletIndications: Dyslipidemia Take 1 Tablet (20 mg) by mouth at bedtime. 90 Tablet 3 025 Active polyethylene glycoL (MIRALAX) 17 gram/scoop powderIndications: Constipation, acute Mix 1 scoop (17 g) in liquid then take by mouth once daily. Active cetirizine (ZyrTEC) 10 mg tablet Take 10 mg by mouth once daily if needed. Active oxyCODONE 5 mg immediate release tabletIndications: Ventral hernia without obstruction or gangrene Take 1 Tablet (5 mg) by mouth every 4 hours if needed for Pain. 12 Tablet 06/01/19 25 5:07 PM CDT 025 Active polyethylene glycoL 17 gram/scoop powderIndications: Ventral hernia without obstruction or gangrene Mix in liquid then take by mouth once daily for 10 days. 238 g 06/01/19 25 5:07 PM CDT 025 2024 Active acetaminophen 500 mg tabletIndications: Pain Take 2 Tablets (1,000 mg) by mouth every 6 hours if needed for Pain. Max acetaminophen dose: 4000mg in 24 hrs. 20 Tablet 06/02/19 25 11:21 AM CDT 025 Active acetaminophen (TYLENOL EXTRA STRGTH) 500 mg tabletIndications: Pain Take 2 Tablets (1,000 mg) by mouth every 6 hours. Max acetaminophen dose: 4000mg in 24 hrs. 024 2024 Discontinued polyethylene glycol-electrolyte (GOLYTELY) 236-22.74-6.74 -5.86 gram suspensionIndicati ons:Encounter for screening colonoscopy Drink 2 liters (half the bottle) the day before colonoscopy and 2 liters (remaining prep) 6 hours prior to colonoscopy appointment. 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 Elevated PSA 01/05/2016 Mild intermittent asthma without complication Gilbert disease 02/04/2013 Peripheral neuropathy 12/10/2012 HTN (hypertension) 12/10/2012 Postoperative anemia due to acute blood loss History of colon cancer 11/08/2009 Overview (04/13/2024): Colonoscopy colon cancer Colonoscopy 03/2024 diverticulosis , repeat in 5 years Impaired fasting glucose 10/04/2009 Mixed hyperlipidemia 10/04/2009 Migraine, unspecified, witho ut mention of intractable migraine without mention of status migrainosus 08/27/2006 Allergic rhinitis, cause unspecified 08/27/2006 Overview (08/27/2006): Primarily to animals. Symptoms itchy eyes, runny nose and rash. Resolved Problems Problem Noted Date Diagnosed Date Resolved Date On mechanically assisted ventilation 08/08/2023 08/09/2023 Laryngospasm 01/17/2010 12/16/2013 Hypoxia 12/31/2009 12/16/2013 Hives 12/31/2009 01/08/2014 Hypotension 12/30/2009 12/10/2012 Unspecified asthma(493.90) 08/27/2006 1 Unspecified essential hypertension 08/27/2006 12/18/2013 HEMORRHAGE, CONJUNCTIVAL-OD 05/14/2001 08/27/2006 Encounters Date Type Department Care Team Description 05/31/2024 2:00 PM CDT Anesthesia Event [facility] [address] [place] [address] Dominic Hassan MD 05/31/2024 1:15 PM CDT - 05/31/2024 3:53 PM CDT Surgery [facility] [address] [place] [address] Lukas Luevano MD open repair of recurrent ventral hernia with mesh, myofacial advancement flaps 05/31/2024 11:10 AM CDT - 06/01/2024 3:24 PM CDT Hospital Encounter [facility] [address] [place] [address] Lukas Luevano MD Ventral hernia without obstruction or gangrene (Primary Dx); Pain Discharge Disposition: Home Self Care 05/31/2024 Travel 05/28/2024 Travel 05/25/2024 1:25 PM CDT Office Visit [facility] [address] [place] [address] Ariana Lao MD Pre-Op Exam (Hernia surgery 05/31/[address] Lukas Luevano) 05/25/2024 Travel 05/20/2024 Travel 05/03/2024 8:30 AM CHEMICAL DEPENDENCY THERAPIST Office Visit [facility] [address] [place] [address] Lukas Luevano MD Consult (Ventral Hernia) 05/03/2024 Travel 04/28/2024 Travel 04/16/2024 Orders Only [facility] [address] [place] [phone] Lukas Luevano MD <No scans attached> 04/15/2024 Telephone [facility] [address] [place] [address] Jenny Little MD Imaging results 04/14/2024 Orders Only [facility] [address] [place] [address] Ariana Lao MD 1 scan: (1-Ord) [facility] 04/13/2024 7:06 AM CHEMICAL DEPENDENCY THERAPIST - 04/13/2024 11:59 PM CHEMICAL DEPENDENCY THERAPIST Hospital Encounter Luke Michele MD 04/13/2024 Orders Only [address] [place] [address] Luke Michele MD <No scans attached> 04/13/2024 Surgery [facility] [address] [facility] [address] [place] [address] Luke Michele MD colonoscopy, screening 04/06/2024 Telephone [facility] [address] [place] [address] Chi Manuel MD Results (CT scan) 04/06/2024 Telephone [facility] [address] [place] [address] Luke Michele MD Appointment Reminder (Colonoscopy [facility]) 04/05/2024 1:45 PM CHEMICAL DEPENDENCY THERAPIST Orders Only [facility] [address] [place] [address] Lab, [facility] 04/05/2024 11:30 AM CHEMICAL DEPENDENCY THERAPIST Ancillary Procedure [facility] [address] [place] [address] 04/05/2024 Travel 04/01/2024 10:00 AM CHEMICAL DEPENDENCY THERAPIST Office Visit [facility] [address] [place] [phone] Jenny Little MD Consult (Umbilical hernia consult -there is bulging and that it just stays out. Pt states that he has had it more than a year and that it has gotten bigger since January 2024.) 03/31/2024 Travel 03/29/2024 2:45 PM CHEMICAL DEPENDENCY THERAPIST Office Visit [facility] [address] [place] [address] Chi Manuel MD Consult (Umbilical hernia, referred by Dr Lao ) 03/29/2024 Travel 03/27/2024 Travel 03/26/2024 Orders Only [facility] Scanner 1 scan: (1-Ord) [place] [facility], PROSTATE CANCER, 03/26/2024 03/25/2024 8:15 AM CHEMICAL DEPENDENCY THERAPIST Office Visit [facility] [address] [place] [address] Ariana Lao MD Medicare ANNUAL (subsequent) Visit (73 yo Male/B/P has been a little higher. Taken off of losartan and HCTZ after surgery/Has urology follow up scheduled/Hernia concerns, not causing problems, wonders if he should see someone.) 03/25/2024 Telephone [facility] [address] [place] [address] Luke Mihcele MD Need Meds 03/25/2024 Travel 03/20/2024 Travel from Last 3 Months Immunizations Immunization Administration Dates Next Due AMB INFLUENZA IIV3 (AGE 65+ YRS) PF (Flu Clinic Only) 12/12/2016 AMB Influenza, IIV3 (Age >=3 years)(Flu Clinic Only) 12/08/2012,12/04/2011,12/24/2010,12/21,01/08/2008 AMB Influenza, IIV4 PF (=>6 mos Flulaval,Fluzone Fluarix)(Flu Clinic Only) 12/17/2018 Amb Influenza, Inact (High-d ose) (Flu Clinic Only) 12/19/2015 Amb Influenza, Inactivated A IIV4 (Age 65+ Years) Preserv Free 11/30/2019 COVID-19 VACCINE SPIKEVAX (M ODERNA 50MCG/0.5ML) 12YO+ PFS 07/02/2023,12/31/2022 COVID-19 vaccine (Moderna 100mcg/0.5mL) PF, MDV 07/20/2021,01/12/2021,06/02/2020,05/05 COVID-19 vaccine (Moderna 50 mcg/0.5mL) 12YO+ BIVALENT PF, MDV 02/12/2022 COVID-19 vaccine (Pfizer-Bio NTech 30mcg/0.3mL) 12YO+ BIVALENT PF, MDV 07/23/2022 Influenza A (H1N1), Inactivated 03/08/2009 Influenza A (H1N1), Inactiva bernardo (Age >=3 Years) 03/08/2009 Influenza, High-dose Inactivated 01/15/2024,06/2015,12/20/2014 Influenza, High-dose Quadriv alent Inactivated 12/31/2022,12/28/2021 Influenza, IIV3 (Age 6-35 mos) 12/24/2010 Influenza, IIV3 (Age >=3 years) 12/09/19 13,12/04/2011,12/20/2009,12/21,01/08/2008,01/28/2007,02/12/2006 ,01/11/2006,01/09/2005,01/05/2004,12/16 Influenza, IIV4 12/16/2013 Influenza, Inactivated AIIV4 (Age 65+ Years) Preserv Free 12/13/2020 Influenza, Inactivated IIV3 (Age 65+ Years) Preserv Free 01/08/2018,12/12/2016 Pneumococcal Poly,23-Valent (Pneumovax) 01/07/2017,10/04/2009 Pneumococcal conj 13-Valent (Prevnar 13) 12/20/2014 RSV, Recombinant ADJ Reconst ituted (Arexvy 120MCG/0.5mL) 01/08/2024 Td (Age >=7 Years) 07/20/2003 Tdap 01/22/2021,11/02/2010 Zoster (Shingrix-RZV, recombinant) 07/21,07/16/2018,05/11/2018,04/29 Zoster (Zostavax-ZVL, live) 10/04/2009 Family History Medical History Relation Name Comments Polymyalgia rheumatica Brother Other Father stroke at age 7 8 Other Mother Hip fracture di ed at 85 Psychiatric illness Mother Bipolar Cancer-colon Neg. 1 Cancer-prostate Neg. 2 Heart Disease Neg. 3 Diabetes Neg. 4 Genetic Other cancer Relation Name Status Comments Brother Father Mother Neg. 1 Neg. 2 Neg. 3 Neg. 4 Other Social History Tobacco Use Types Packs/Day Years Used Date Smoking Tobacco: Never Smokeless Tobacco: Never Tobacco Cessation:Counseling Given: Yes Alcohol Use Standard Drinks/Week Comments Yes 0 (1 standard drink = 0.6 oz pur e alcohol) 0-5 drinks a week PHQ-2 Answer Date Recorded PHQ-2 TOTAL SCORE 0 03/25/2024 Social Connections Answer Date Recorded Do you often feel lonely or isolated from those around you? 0 06/01/2024 Financial Resource Strain Answer Date R ecorded Difficulty of Paying Living Expenses 3 03/20/2024 Difficulty of Paying Living Expenses Not on file 03/20/2024 Food Insecurity Answer Date Recorded Do you worry your food will run out before you are able to buy more? 1 06/01/2024 Transportation Needs Answer Date Record ed Does lack of transportation keep you from medica l appointments? 1 06/01/2024 Does lack of transportation keep you from work, meetings or getting things that you need? 1 06/01/2024 Housing Stability Answer Date Recorded What is your housing situation today? 1 06/01/2024 Interpersonal Safety Answer Date Record ed Are you being hit, kicked, p ushed or yelled at (see row info)? No 06/01/2024 Interpersonal Safety Abuse 12 - 18 Not on file 06/01/2024 Interpersonal Safety Ambulatory Vulnerability No t on file 06/01/2024 Utilities Answer Date Recorded Do you have trouble paying f or utilities (for example, heat, electricity, water, phone)? 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 Not on file Not on file Not o n file Obstetrics History Last Filed Vital Signs Vital Sign Reading Time Taken Comments Blood Pressure 118/58 06/01/2024 9:49 AM CDT Pulse 56 06/01/2024 7:00 AM CDT Temperature 36.9 C (98.4 F) 06/01/2024 7:00 AM CDT Respiratory Rate 16 06/01/2024 7:00 AM CDT Oxygen Saturation 97% 06/01/2024 7:00 AM CDT Inhaled Oxygen Concentration - - Weight 93 kg (205 lb) 05/31/2024 12:01 PM CDT Height 177.8 cm (5' 10) 05/31/2024 12:01 PM CDT Body Mass Index 29.41 05/31/2024 12:01 PM CDT Plan of Treatment Upcoming Encounters Date Type Department Care Team (Late st Contact Info) Description 06/07/2024 10:00 AM CDT Nurse/Clinic Staff Only [facility] [address] [facility] [address] [place] [phone] Health Maintenance Due Date Last Done Comments COVID-19 vaccine series (10 - Moderna risk ) 05/17/2024 11/18/2023, 07/02/2023, 12/31/2022, Additional history exists Medicare Wellness for age 65+ 03/26/2025, 01/30/2023, 01/24/2022, Additional history exists Depression screening for age 12+ 03/29/2025 03/29/2024, 03/25/2024, 03/25/2024, Additional history exists BMI (ht and wt on same day) for age 18+ 05/03/2025 05/03/2024, 04/01/2024, 03/25/2024, Additional history exists Lipids for age 45-75 02/01/2029 02/02/2024, 01/27/2023, 01/24/2022, Additional history exists Colonoscopy through age 75 04/13/202904/13, 01/26/2019, 01/26/2019, Additional history exists Tetanus booster 01/22/2031 01/22/2021, 10/15, 07/20/2003 Pneumococcal series for age 50+ Completed 01/07/2017, 12/20/2014, 10/04/2009 Zoster (shingles) series for age 50+ Completed 07/21/2018, 07/16/2018, 05/11/2018, Additional history exists Hepatitis C screening for ag e 18-79 Completed 01/13/2019 Tdap Completed 01/22/2021, 11/02/2010 RSV vaccine for adults or Completed 01/08/2024 Influenza Vaccine Completed 01/15/2024, , 11/30/2019, Additional history exists Medical Devices Implanted Type Area Environmental Educator Device Identifier Shelf Expiration Date Model / Serial / Lot [place] Synecor Preperitoneal / [id number] Oval Biomaterial Implanted:Qty: 1 on 05/31/2024 by Lukas Luevano MD at [facility] N/A: Abdomen 08/17/2026 [id number] / [id number] / Description:GORE SYNECOR PRE PERITONEAL / [id number] Oval Biomaterial Procedures Procedure Name Priority Date/Time Associated Diagnosis Comments ENDOTRACHEAL TUBE Routine 05/31/2024 2:22 PM CDT ENDOTRACHEAL TUBE Routine 05/31/2024 2:22 PM CDT HERNIORRHAPHY VENTRAL RECURRENT Tier 3 05/31/2024 1:41 PM CDT Recurrent ventral hernia Case Notes LATEX ALLERGYSynecor Pre mesh CBC WITH AUTO DIFFERENTIAL Routine 05/25/2024 2:46 PM CDT Preoperative examination BASIC METABOLIC PANEL Routine 05/25/2024 2:46 PM CDT Preoperative examination PROTIME-INR Routine 05/25/2024 2:45 PM CDT Postprocedural hemorrhage of a genitourinary system organ or structure following a genitourinary system procedure COLONOSCOPY SCREENING Routine 04/13/2024 12:00 AM CHEMICAL DEPENDENCY THERAPIST Screening for colon cancer CT ABDOMEN PELVIS W Routine 04/05/2024 11:40 AM CHEMICAL DEPENDENCY THERAPIST Umbilical hernia without obstruction and without gangrene CREATININE,ISTAT Routine 04/05/2024 11:22 AM CHEMICAL DEPENDENCY THERAPIST Observation or evaluation for suspected condition SCAN-OPERATIVE/PROC EDURE REPORT 03/26/2024 12:00 AM CHEMICAL DEPENDENCY THERAPIST LIPID PANEL W REFLEX MEASURED LDL Routine 02/02/2024 10:34 AM CHEMICAL DEPENDENCY THERAPIST Lipid screening ANTI HCV Routine 01/13/2019 8:39 AM CDT Encounter for hepatitis C screening test for low risk patient SURGICAL PROCEDURE (TYPE PROCEDURE DESCRIPTION BELOW) Encounter for screening colonoscopy from Last 3 Months or Most Recently Relevant to Health Maintenance Results * HCHG TUBE PR1, HCHG STYLET PR1 (05/31/2024 2:22 PM CDT) Narrative Maria Luisa Hester CRNA - 05/31/2024 2:22 PM CDT Maria Luisa Hester CRNA 05/31/2024 2:22 PM Procedure: ETT Patient location during procedure: OR ETT Properties Mask Ventilation: oral airway Final Technique: direct laryngoscopy Type: straight Location: oral Cuffed: yes Tube Size: 7.5 mm Stylet: yes Laryngoscope Blade: Sandhu Blade Size: 2 Cormack-Lehane Grade View: 1 Insertion Attempts: 1 Placement Verification: end tidal CO2 and symmetrical chest wall movement Assessment: pharynx clear, atraumatic and dentition unchanged Secured at: 22 Measured From: lips Difficulty: 0 (not difficult) Dominic Hassan MD ANESTHESIA PX NOTE ORDERABLES Fi nal Result * CBC AND DIFFERENTIAL (05/25/2024 2:46 PM CDT) WHITE BLOOD CELL COUNT 5.1 3.8 - 10.8 Thousand/u L [facility] RED BLOOD CELL COUNT 5.11 4.20 - 5.80 Million/uL [facility] HEMOGLOBIN 15.4 13.2 - 17.1 g/dL [facility] HEMATOCRIT 47.1 38.5 - 50.0 % [facility] MCV 92.2 80.0 - 100.0 fL [facility] MCH 30.1 27.0 - 33.0 pg [facility] MCHC 32.7 32.0 - 36.0 g/dL [facility] Comment: For adults, a slight decrease in the calculated MCHC value (in the range of 30 to 32 g/dL) is most likely not clinically significant; however, it should be interpreted with caution in correlation with other red cell parameters and the patient's clinical condition. RDW 13.4 11.0 - 15.0 % [facility] PLATELET COUNT 189 140 - 400 Thousand/u L [facility] MPV 10.5 7.5 - 12.5 fL [facility] ABSOLUTE NEUTROPHILS 3,055 1,500 - 7,800 cells/uL [facility] ABSOLUTE LYMPHOCYTES 1,525 850 - 3,900 cells/uL [facility] ABSOLUTE MONOCYTES 408 200 - 950 cells/uL [facility] ABSOLUTE EOSINOPHILS 82 15 - 500 cells/uL [facility] ABSOLUTE BASOPHILS 31 0 - 200 cells/uL [facility] NEUTROPHILS 59.9 % [facility] LYMPHOCYTES 29.9 % [facility] MONOCYTES 8.0 % [facility] EOSINOPHILS 1.6 % [facility] BASOPHILS 0.6 % [facility] Blood BLOOD SPECIMEN / Unknown 05/25/2024 2:46 PM CDT 05/25/2024 2:47 PM CDT Ariana Lao MD HEMATOLOGY Final Result [employer] [facility] [address] [place] [address], [facility] [address] [place] [address] * BASIC METABOLIC PANEL (05/25/2024 2:46 PM CDT) [facility] GLUCOSE 78 65 - 99 mg/dL [facility] Comment: Fasting reference interval UREA NITROGEN (BUN) 12 7 - 25 mg/dL [facility] CREATININE 0.86 0.70 - 1.28 mg/dL [facility] EGFR 91 > OR = 60 mL/min/1. 73m2 [facility] BUN/CREATININE RATIO SEE NOTE: 6 - 22 (calc) [facility] Comment: Not Reported: BUN and Creatinine are within reference range. SODIUM 141 135 - 146 mmol/L [facility] POTASSIUM 3.9 3.5 - 5.3 mmol/L [facility] CHLORIDE 103 98 - 110 mmol/L [facility] CARBON DIOXIDE 31 20 - 32 mmol/L [facility] ELECTROLYTE BALANCE 7 7 - 17 mmol/L (calc) [facility] CALCIUM 9.2 8.6 - 10.3 mg/dL [facility] Blood BLOOD SPECIMEN / Unknown 05/25/2024 2:46 PM CDT 05/25/2024 2:47 PM CDT Ariana Lao MD CHEMISTRY Final Result [employer] [facility] [address] [place] [address], [facility] [address] * PROTIME-INR (05/25/2024 2:45 PM CDT) INR 1.0 <1.3 05/25/2024 10:40 PM CDT [facility] PROTIME 11.6 10.6 - 12.4 sec 05/25/2024 10:40 PM CDT [facility] Blood BLOOD SPECIMEN / Unknown [facility] / Unknown 05/25/2024 2:45 PM CDT 05/25/2024 2:45 PM CDT Narrative [facility] - 05/25/2024 10:40 PM CDT Therapeutic Range 2.0-3.0 for most anticoagulated patients 2.5-3.5 or 4.0 for high risk patients The INR is only used for patients on stable oral anticoagulant therapy. It makes no significant contribution to the diagnosis or treatment of patients whose Protime is prolonged for other reasons. INR results are increased when heparin levels exceed 1.0 U/mL, which corresponds to an aPTT >125 seconds if the patient is on UFH. us Ariana Lao MD HEMATOLOGY Final Result [facility] [address] [place] [address], [place] * COLONOSCOPY SCREENING [[id number]] (04/13/2024 12:00 AM CHEMICAL DEPENDENCY THERAPIST) Ariana Lao MD GI PROCEDURE ORD Lila l Result * CT ABDOMEN PELVIS W (04/05/2024 11:40 AM CHEMICAL DEPENDENCY THERAPIST) Anatomical Region Laterality Modality Abdomen, Pelvis, AORTA, LIVER, SPLEEN Computed Tomography 04/05/2024 6:38 PM CHEMICAL DEPENDENCY THERAPIST Impressions 04/05/2024 6:38 PM CHEMICAL DEPENDENCY THERAPIST 1. Transverse bowel containing umbilical hernia with 4.6 cm neck. No evidence of bowel obstruction or strangulation. 2. Nonobstructing 1 cm left ureteral calculus. 3. Cholelithiasis. Please note that all CT scans at this facility use dose modulation, iterative reconstruction, and/or weight-based dosing when appropriate to reduce radiation dose to as low as reasonably achievable. Dictated by Mayco Bass MD @ 04/05/2024 6:38:55 PM (Electronically Signed) Narrative 04/05/2024 6:38 PM CHEMICAL DEPENDENCY THERAPIST For Patients: As a result of the Century Cures Act, medical imaging exams and procedure reports are released immediately into your electronic medical record. You may view this report before your referring provider. If you have questions, please contact your health care provider. CLINICAL INFORMATION: Umbilical hernia. TECHNIQUE: Contrast-enhanced CT of the abdomen and pelvis was obtained. Coronal and sagittal reformatted images were obtained. Contrast: 100 mL of Omnipaque 350 intravenous contrast was injected uneventfully prior to image acquisition. Radiation Dose Estimate (Total Exam DLP): 525 mGy-cm. COMPARISON: CT abdomen and pelvis 2023. FINDINGS: Lower Chest: Lung bases: Mild bibasilar dependent atelectatic changes. Heart/Pericardium: Unremarkable. Abdomen/Pelvis: Liver: Noncirrhotic morphology. Left hepatic lobe cysts. Gallbladder: Cholelithiasis. Spleen: Unremarkable. Adrenal glands: Unremarkable. Kidneys: Enhance symmetrically without hydronephrosis. 1 cm nonobstructing left renal calculus. Pancreas: Unremarkable. Lymph nodes: No retroperitoneal, mesenteric, inguinal, or pelvic adenopathy by CT criteria. Vascular: Abdominal aorta normal in caliber. Bowel: No bowel obstruction. Transverse colon containing umbilical hernia without evidence of strangulation. Normal appendix in the right lower quadrant. Sigmoid colonic diverticula. No evidence of diverticulitis. Status post partial sigmoid resection with suture material in the pelvis. Urinary bladder: Limited evaluation due to underdistention. No gross pathology. Reproductive structures: Unremarkable for patient`s age. No abdominal/pelvis ascites or free intraperitoneal air. Musculoskeletal: Visualized osseous structures demonstrate diffuse degenerative changes. Procedure Note Mayco Bass MD - 04/05/2024 For Patients: As a result of the Cures Act, medical imagingexams and procedure reports are released immediately into your electronicmedical record. You may view this report before your referring provider.If you have questions, please contact your health care provider. CLINICAL INFORMATION: Umbilical hernia. TECHNIQUE: Contrast-enhanced CT of the abdomen and pelvis was obtained. Coronal andsagittal reformatted images were obtained. Contrast: 100 mL of Omnipaque 350 intravenous contrast was injecteduneventfully prior to image acquisition. Radiation Dose Estimate (Total Exam DLP): 525 mGy-cm. COMPARISON: CT abdomen and pelvis 2023. FINDINGS: Lower Chest: Lung bases: Mild bibasilar dependent atelectatic changes. Heart/Pericardium: Unremarkable. Abdomen/Pelvis: Liver: Noncirrhotic morphology. Left hepatic lobe cysts. Gallbladder: Cholelithiasis. Spleen: Unremarkable. Adrenal glands: Unremarkable. Kidneys: Enhance symmetrically without hydronephrosis. 1 cm nonobstructingleft renal calculus. Pancreas: Unremarkable. Lymph nodes: No retroperitoneal, mesenteric, inguinal, or pelvicadenopathy by CT criteria. Vascular: Abdominal aorta normal in caliber. Bowel: No bowel obstruction. Transverse colon containing umbilical herniawithout evidence of strangulation. Normal appendix in the right lowerquadrant. Sigmoid colonic diverticula. No evidence of diverticulitis.Status post partial sigmoid resection with suture material in the pelvis. Urinary bladder: Limited evaluation due to underdistention. No grosspathology. Reproductive structures: Unremarkable for patient`s age. No abdominal/pelvis ascites or free intraperitoneal air. Musculoskeletal: Visualized osseous structures demonstrate diffuse degenerative changes. IMPRESSION: 1. Transverse bowel containing umbilical hernia with 4.6 cm neck. Noevidence of bowel obstruction or strangulation. 2. Nonobstructing 1 cm left ureteral calculus. 3. Cholelithiasis. Please note that all CT scans at this facility use dose modulation,iterative reconstruction, and/or weight-based dosing when appropriate toreduce radiation dose to as low as reasonably achievable. Dictated by Mayco Bass MD @ 04/05/2024 6:38:55 PM (Electronically Signed) us Chi Manuel MD CT Final Resu lt * POCT Creatinine (04/05/2024 11:22 AM CHEMICAL DEPENDENCY THERAPIST) POCT,CREATININ E, ISTAT 1.0 0.6 - 1.3 mg/dL [facility] Blood BLOOD SPECIMEN / Unknown 04/05/2024 11:22 AM CHEMICAL DEPENDENCY THERAPIST 04/05/2024 11:22 AM CHEMICAL DEPENDENCY THERAPIST us Chi Manuel MD CHEMISTRY Final Resu lt [facility] [address] [place] [address], [facility] [address] [place] [address] * SCAN-OPERATIVE/PROCEDURE REPORT (03/26/2024 12:00 AM CHEMICAL DEPENDENCY THERAPIST) us Scanner OTHER Final Result * LIPID PANEL W REFLEX MEASURED LDL (02/02/2024 10:34 AM CHEMICAL DEPENDENCY THERAPIST) CHOLESTEROL, TOTAL 126 <200 mg/dL [facility] HDL CHOLESTEROL 55 > OR = 40 mg/dL [facility] TRIGLYCERIDES 146 <150 mg/dL [facility] LDL-CHOLESTEROL 48 mg/dL (calc) [facility] Comment: Reference range: <100 Desirable range <100 mg/dL for primary prevention; <70 mg/dL for patients with CHD or diabetic patients with > or = 2 CHD risk factors. LDL-C is now calculated using the Magali calculation, which is a validated novel method providing better accuracy than the Friedewald equation in the estimation of LDL-C. Luke SS et al. REBECCA. 2013;310(19): 8222-2911 (http://education.[employer]faq/PKO676) CHOL/HDLC RATIO 2.3 <5.0 (calc) [facility] [employer] NON HDL CHOLESTEROL 71 <130 mg/dL (calc) [facility] Comment: For patients with diabetes plus 1 major ASCVD risk factor, treating to a non-HDL-C goal of <100 mg/dL (LDL-C of <70 mg/dL) is considered a therapeutic option. Blood BLOOD SPECIMEN / Unknown 02/02/2024 10:34 AM CHEMICAL DEPENDENCY THERAPIST 02/02/2024 10:35 AM CHEMICAL DEPENDENCY THERAPIST Ariana Lao MD CHEMISTRY Final Result [employer] [facility] [address] [place] [address], [facility] [address] [place] [address] * ANTI HCV (01/13/2019 8:39 AM CDT) Pathologist [facility] HEPATITIS C ANTIBODY Non-React jennifer Non-React jennifer 01/13/2019 2:41 PM CDT [facility] Comment:Antibodies to HCV no t detected; does not exclude the possibility of exposure to HCV. Blood BLOOD SPECIMEN / Unknown Venipuncture / Unknown 01/13/2019 8:39 AM CDT 01/13/2019 8:39 AM CDT us Ariana Lao MD SEND OUTS Final Result [facility] [address] [place] [address], [place] from Last 3 Months or Most Recently Relevant to Health Maintenance Insurance * Guarantor: Fidencio Bazzi Account Type Relation to Patient Date of Phone Billing Address Personal/Family Self 1950 [address] [place] [address] MEDICARE PB ONLY MEDICARE PART B HB ONLY MEDICARE PART A HB ONLY [facility] FED EMP [address] [facility] [place] [place] [address] MEDICARE PPS Advance Directives Documents on File Type Date Recorded Patient Ultrasound Manager Expl anation Healthcare Directive 06/01/2013 3:16 PM [facility], 12/25/09 * Full Code (Latest Code Status on File) Date Activated Date Inactivated Comments 05/31/2024 11:49 AM 06/01/2024 5:34 PM Question Answer Comments Code Status Discussion: Unable to Assess Preferences, Provider to review later * Full Code Date Activated Date Inactivated Comments 08/19/2023 8:26 PM 05/31/2024 11:10 AM * Full Code Date Activated Date Inactivated Comments 08/06/2023 6:10 AM 08/18/2023 5:17 PM Question Answer Comments Code Status Discussion: Not Discussed * Full Code Date Activated Date Inactivated Comments 01/25/2014 3:12 PM 01/26/2014 2:26 AM * Full Code Date Activated Date Inactivated Comments 12/28/2009 1:24 PM 01/04/2010 10:32 PM Care Teams Leak Operator [employer] Relationship Specialty Start Date End Date Ariana Lao MD [address] [place] [address] PCP - General Family Practice 12/28/12
[2024-06-01 21:19] VITALS: BP 117/81; PULSE 84; RESP 16; TEMP 37.3; O2SAT 96; BMI 29.4
--- NOTE | 2024-06-01 21:27 | CRLHL7_ITS ---
For Patients: As a result of the Century Cures Act, medical imaging exams and procedure reports are released immediately into your electronic medical record. You may view this report before your referring provider. If you have questions, please contact your health care provider. INDICATION: Postop bleeding. Hernia repair yesterday. TECHNIQUE: CT abdomen and pelvis acquired with 101 cc of Isovue 370 IV contrast. COMPARISON: None. FINDINGS: Lower chest: Unremarkable. Liver: Unremarkable. Normal in size and attenuation. No suspicious masses. Gallbladder and bile ducts: Cholelithiasis. No inflammation or biliary ductal dilation. Pancreas: Unremarkable. No mass or inflammation. Spleen: Unremarkable. Normal in size. No masses. Adrenal glands: Unremarkable. No nodules. Kidneys: 1 cm nonobstructing stone within the left kidney. No hydronephrosis. GI tract: Anastomosis at the rectosigmoid junction. Distal colon diverticulosis. No pericolonic inflammation. No bowel obstruction. Normal appendix. Vasculature: Normal caliber abdominal aorta with mild atherosclerotic calcification. Mesenteric arteries are patent. Lymph nodes: No lymphadenopathy. Peritoneum/Abdominal Wall: No free air. Recent postsurgical changes of the lower anterior abdominal wall with subcutaneous emphysema and fat stranding. Postsurgical changes of the left inguinal canal, compatible with hernia repair. Small volume free fluid in the pelvis. 2.9 x 1.6 x 3.2 cm hyperdense ovoid lesion in the presacral soft tissues posterior to the rectum. Pelvis: Unremarkable. Bones: Unremarkable for age. IMPRESSION: 1. Recent postoperative changes of left inguinal hernia repair. 2. 3.2 x 2.9 x 1.6 cm hyperdense ovoid lesion in the presacral soft tissues posterior to the rectum. This could represent a postoperative hematoma; however, a neoplasm/metastatic disease can not be excluded. No prior study available to evaluate for the acuity of this finding. Recommend short interval follow-up. 3. 1 cm nonobstructing left nephrolith. 4. Diverticulosis without diverticulitis in the setting of possible prior sigmoidectomy. Please note that all CT scans at this facility use dose modulation, iterative reconstruction, and/or weight-based dosing when appropriate to reduce radiation dose to as low as reasonably achievable. Dictated by Wong Chapin MD @ 06/01/2024 11:05:00 PM (Electronically Signed)
--- OUTSIDE RECORDS SUMMARY | 2024-06-01 21:37 | XMS_ITS | Clinical Summary ---
Author Organization [facility] Address [address] , [address] [place] [address] Phone Care Team Providers Care Encoding Clerk Name Role Phone [facility] [...] Procedures Code Procedure Name Date Entry Date CPT-25641 Nerve Conduction 7-8 studies CPT-48220 EMG with NCS (5+ muscles) - 2 limbs 03/15 Vital Signs No information available. Immunizations No information available. Advance Directives No information available.
--- OUTSIDE RECORDS SUMMARY | 2024-06-01 21:38 | XMS_ITS | Clinical Summary ---
Author Organization [facility] Address [address] [place] [address] Care Team Providers Care Grain Elevator Man Name Role Phone Ariana Lao MD Primary [...] Sprays into affected nostril(s) three times daily. Omaha dose in each nostril. 30 mL 024 Active Additional Information Patient taking differently:2 [place] NasalTID PRN, [place] dose in each nostril., Reported on 05/31/2024 [...] Description 05/31/2024 2:00 PM CDT Anesthesia Event [facility] [address] [place] [address] Dominic Hassan MD 05/31/2024 1:15 PM CDT - 05/31/2024 3:53 PM CDT Surgery [facility] [address] [place] [address] Lukas Luevano MD open repair of recurrent ventral hernia with mesh, myofacial advancement flaps 05/31/2024 11:10 AM CDT - 06/01/2024 3:24 PM CDT Hospital Encounter [facility] [address] [place] [id number] Lukas Luevano MD Ventral hernia without obstruction or gangrene (Primary Dx); Pain Discharge Disposition: Home Self Care 05/31/2024 Travel 05/28/2024 Travel 05/25/2024 1:25 PM CDT Office Visit [facility] [address] [place] [address] Ariana Lao MD Pre-Op Exam (Hernia surgery 05/31/[address] Lukas Luevano) 05/25/2024 Travel 05/20/2024 Travel 05/03/2024 8:30 AM RETURNS PROCESSOR Office Visit [facility] [address] [place] [address] Lukas Luevano MD Consult (Ventral Hernia) 05/03/2024 Travel 04/28/2024 Travel 04/16/2024 Orders Only [facility] [address] [place] [phone] Lukas Luevano MD <No scans attached> 04/15/2024 Telephone [facility] [address] [place] [address] Jenny Little MD Imaging results 04/14/2024 Orders Only [facility] [address] [place] [address] Ariana Lao MD 1 scan: (1-Ord) [facility] 04/13/2024 7:06 AM RETURNS PROCESSOR - 04/13/2024 11:59 PM RETURNS PROCESSOR Hospital Encounter Luke Michele MD 04/13/2024 Orders Only [address] [place] [address] Luke Michele MD <No scans attached> 04/13/2024 Surgery [facility] [address] [facility] [address] [place] [address] Luke Michele MD colonoscopy, screening 04/06/2024 Telephone [facility] [address] [place] [address] Chi Manuel MD Results (CT scan) 04/06/2024 Telephone [facility] [address] [place] [address] Luke Michele MD Appointment Reminder (Colonoscopy [facility]) 04/05/2024 1:45 PM RETURNS PROCESSOR Orders Only [facility] [address] [place] [address] Lab, [facility] 04/05/2024 11:30 AM RETURNS PROCESSOR Ancillary Procedure [facility] [address] [place] [address] 04/05/2024 Travel 04/01/2024 10:00 AM RETURNS PROCESSOR Office Visit [facility] [address] [place] [phone] Jenny Little MD Consult (Umbilical hernia consult -there is bulging and that it just stays out. Pt states that he has had it more than a year and that it has gotten bigger since January 2024.) 03/31/2024 Travel 03/29/2024 2:45 PM RETURNS PROCESSOR Office Visit [facility] [address] [place] [address] Chi Manuel MD Consult (Umbilical hernia, referred by Dr Lao ) 03/29/2024 Travel 03/27/2024 Travel 03/26/2024 Orders Only [facility] Scanner 1 scan: (1-Ord) [place] [facility] PROSTATE CANCER, 03/26/2024 03/25/2024 8:15 AM RETURNS PROCESSOR Office Visit [facility] [address] [place] [address] Ariana Lao MD Medicare ANNUAL (subsequent) Visit (73 yo Male/B/P has been a little higher. 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 Not on file Not [...] 06/07/2024 10:00 AM CDT Nurse/Clinic Staff Only [facility] [address] [facility] [address] [place] [phone] Health Maintenance Due Date Last Done Comments [...] history exists Medical Devices Implanted Type Area Lumber Tallier Device Identifier Shelf Expiration Date Model / Serial / Lot Vowinckel Synecor Preperitoneal / [id number] Oval Biomaterial Implanted:Qty: 1 on 05/31/2024 by Lukas Luevano MD at [facility] N/A: Abdomen 08/17/2026 [id number] / [id number] / Description:GORE SYNECOR PRE PERITONEAL / [id number] Oval Biomaterial Procedures Procedure Name Priority Date/Time [...] procedure COLONOSCOPY SCREENING Routine 04/13/2024 12:00 AM RETURNS PROCESSOR Screening for colon cancer CT ABDOMEN PELVIS W Routine 04/05/2024 11:40 AM RETURNS PROCESSOR Umbilical hernia without obstruction and without gangrene CREATININE,ISTAT Routine 04/05/2024 11:22 AM RETURNS PROCESSOR Observation or evaluation for suspected condition SCAN-OPERATIVE/PROC EDURE REPORT 03/26/2024 12:00 AM RETURNS PROCESSOR LIPID PANEL W REFLEX MEASURED LDL Routine 02/02/2024 10:34 AM RETURNS PROCESSOR Lipid screening ANTI HCV Routine 01/13/2019 8:39 [...] COUNT 5.1 3.8 - 10.8 Thousand/u L [facility] RED BLOOD CELL COUNT 5.11 4.20 - 5.80 Million/uL [facility] HEMOGLOBIN 15.4 13.2 - 17.1 g/dL [facility] HEMATOCRIT 47.1 38.5 - 50.0 % [facility] MCV 92.2 80.0 - 100.0 fL [facility] MCH 30.1 27.0 - 33.0 pg [facility] MCHC 32.7 32.0 - [...] CDT Ariana Lao MD HEMATOLOGY Final Result [facility] [address] [place] [address], [facility] [address] [place] [address] * BASIC METABOLIC PANEL (05/25/2024 2:46 PM CDT) [facility] GLUCOSE 78 65 - 99 mg/dL [facility] Comment: Fasting reference interval UREA NITROGEN (BUN) 12 7 - 25 mg/dL [facility] CREATININE 0.86 0.70 - 1.28 mg/dL [facility] EGFR 91 > OR = 60 mL/min/1. 73m2 [facility] BUN/CREATININE RATIO SEE NOTE: 6 - 22 [...] CDT Ariana Lao MD CHEMISTRY Final Result [facility] [address] [place] [address], [facility] [address] [address] * PROTIME-INR (05/25/2024 2:45 PM CDT) INR 1.0 <1.3 05/25/2024 10:40 PM CDT [facility] PROTIME 11.6 10.6 - 12.4 sec 05/25/2024 10:40 PM CDT [facility] Blood BLOOD SPECIMEN / Unknown [facility] / Unknown 05/25/2024 2:45 PM CDT 05/25/2024 2:45 PM CDT Narrative [facility] - 05/25/2024 10:40 PM CDT Therapeutic [...] us Ariana Lao MD HEMATOLOGY Final Result [facility] [address] [place] [address], [place] * COLONOSCOPY SCREENING [[id number]] (04/13/2024 12:00 AM RETURNS PROCESSOR) Ariana Lao MD GI PROCEDURE ORD Lila l Result * CT ABDOMEN PELVIS W (04/05/2024 11:40 AM RETURNS PROCESSOR) Anatomical Region Laterality Modality Abdomen, Pelvis, AORTA, LIVER, SPLEEN Computed Tomography 04/05/2024 6:38 PM RETURNS PROCESSOR Impressions 04/05/2024 6:38 PM RETURNS PROCESSOR 1. Transverse bowel containing umbilical hernia with [...] PM (Electronically Signed) Narrative 04/05/2024 6:38 PM RETURNS PROCESSOR For Patients: As a result of the [...] lt * POCT Creatinine (04/05/2024 11:22 AM RETURNS PROCESSOR) POCT,CREATININ E, ISTAT 1.0 0.6 - 1.3 mg/dL [facility] Blood BLOOD SPECIMEN / Unknown 04/05/2024 11:22 AM RETURNS PROCESSOR 04/05/2024 11:22 AM RETURNS PROCESSOR us Chi Manuel MD CHEMISTRY Final Resu lt [facility] [address] [place] [address], [facility] [address] [place] [address] * SCAN-OPERATIVE/PROCEDURE REPORT (03/26/2024 12:00 AM RETURNS PROCESSOR) us Scanner OTHER Final Result * LIPID PANEL W REFLEX MEASURED LDL (02/02/2024 10:34 AM RETURNS PROCESSOR) CHOLESTEROL, TOTAL 126 <200 mg/dL [facility] HDL CHOLESTEROL 55 > OR = 40 mg/dL [facility] TRIGLYCERIDES 146 <150 mg/dL [facility] LDL-CHOLESTEROL 48 mg/dL (calc) [facility] Comment: Reference range: <100 Desirable range <100 mg/dL for primary prevention; <70 mg/dL for patients with CHD or diabetic patients with > or = 2 CHD risk factors. LDL-C is now calculated using the Magali calculation, which is a validated novel method providing better accuracy than the Friedewald equation in the estimation of LDL-C. Luke SS et al. REBECCA. 2013;310(19): 6614-8723 (http://education.[employer]/faq/BKH726) CHOL/HDLC RATIO 2.3 <5.0 (calc) [facility] [employer] NON HDL CHOLESTEROL 71 <130 mg/dL (calc) [facility] Comment: For patients with diabetes plus 1 major ASCVD risk factor, treating to a non-HDL-C goal of <100 mg/dL (LDL-C of <70 mg/dL) is considered a therapeutic option. Blood BLOOD SPECIMEN / Unknown 02/02/2024 10:34 AM RETURNS PROCESSOR 02/02/2024 10:35 AM RETURNS PROCESSOR Ariana Lao MD CHEMISTRY Final Result [facility] [address] [place] [address], [facility] [address] [place] [address] * ANTI HCV (01/13/2019 8:39 AM CDT) Pathologist [facility] HEPATITIS C ANTIBODY Non-React jennifer Non-React jennifer 01/13/2019 2:41 PM CDT [facility] Comment:Antibodies to HCV no t detected; does not exclude the possibility of exposure to HCV. Blood BLOOD SPECIMEN / Unknown Venipuncture / Unknown 01/13/2019 8:39 AM CDT 01/13/2019 8:39 AM CDT us Ariana Lao MD SEND OUTS Final Result [facility] [address] [place] [address], [place] from Last 3 Months or Most Recently Relevant to Health Maintenance Insurance * Guarantor: Fidencio Bazzi Account Type Relation to Patient Date of Phone Billing Address Personal/Family Self 1950 [address] [place] [address] MEDICARE PB ONLY MEDICARE PART B HB ONLY MEDICARE PART A HB ONLY [facility] FED EMP [address] [facility] [address] MEDICARE PPS Advance Directives Documents on File Type Date Recorded Patient Senior Director Expl anation Healthcare Directive 06/01/2013 3:16 PM [facility], 12/25/09 * Full Code (Latest Code Status [...] 1:24 PM 01/04/2010 10:32 PM Care Teams Grain Elevator Man Relationship Specialty Start Date End Date Ariana Lao MD [address] [place] [address] PCP - General Family Practice 12/28/12
[2024-06-01 21:44] LABS: Basophils Absolute Auto 0.02 K/uL (0.00-0.30); Basophils Percent Auto 0.2 % (0.0-3.0); Eosinophils Absolute Auto 0.11 K/uL (0.00-0.50); Eosinophils Percent Auto 1.3 % (0.0-7.0); Hematocrit 36.8 % (37.0-53.0); Hemoglobin* 12.6 gm/dL (13.5-17.5); Lymphocytes Percent Auto 19.8 % (20-44); Mean Corpuscular HGB Conc 34 gm/dL (32-36); Mean Corpuscular Hemoglobin 31 pg (26-34); Mean Corpuscular Volume 91 fL (80-100); Monocytes Percent Auto 9.9 % (0.0-11.0); Neutrophils Absolute Auto 5.75 K/uL (1.7-7.0); Neutrophils Percent Auto 68.8 % (42.0-72.0); Platelet Count* 159 K/uL (140-440); RDW Coefficient of Variation % 13.1 % (11.5-15.5); Red Blood Count 4.03 m/uL (4.30-5.90); White Blood Count* 8.37 K/uL (4.50-11.00)
--- NOTE | 2024-06-01 21:45 | ED.GENADULT ---
HPI - General Adult General Date Seen: 06/01/24 Chief complaint: Post Op Complication Stated complaint: surgery wound opened Time Seen by Provider: 06/01/24 21:21 History of Present Illness HPI narrative: Patient is a 73-year-old male who underwent a complex hernia repair yesterday at [facility]. He apparently has had problems with intra-abdominal her hemorrhage with previous surgeries, cause unknown. He says that his coagulation tests have been evaluated and no abnormal findings were seen. He is not sure with those tests were. He was kept overnight at [facility] last night because of his history of bleeding, but things seemed stable and he was discharged earlier today. This evening, he noted bleeding through the dressing that had been applied. He put another layer dressing on and noted bleeding through that as well so he comes in for evaluation. He has not noted significant swelling. He does not have abdominal pain aside from what would be expected postoperatively. He has not had fevers or vomiting. Related Data Home Medications ?Medication ?Instructions ?Recorded ?Confirmed albuterol sulfate 90 mcg/actuation 2 inh inhalation Q4H PRN 10/01/22 10/02/22 aerosol inhaler (ProAir HFA) ascorbic acid (vitamin C) 500 mg 500 mg PO DAILY 10/01/22 10/02/22 tablet (Vitamin C) aspirin 81 mg tablet,delayed 81 mg PO DAILY 10/01/22 10/02/22 release cholecalciferol (vitamin D3) 25 25 mcg PO DAILY 10/01/22 10/02/22 mcg (1,000 unit) capsule docusate sodium 100 mg capsule 100 mg PO BID 10/01/22 10/02/22 (Colace) epinephrine 0.3 mg/0.3 mL 0.3 ml IM Q5-15M PRN 10/01/22 10/01/22 injection, auto-injector (EpiPen) famotidine 20 mg tablet (Pepcid) 20 mg PO BID 10/01/22 10/02/22 fluticasone propionate 220 2 inh inhalation BID 10/01/22 10/02/22 mcg/actuation HFA aerosol inhaler (Flovent HFA) hydrochlorothiazide 25 mg tablet 25 mg PO DAILY 10/01/22 10/02/22 loratadine 10 mg tablet (Claritin) 10 mg PO DAILY 10/01/22 10/02/22 losartan 100 mg tablet (Cozaar) 100 mg PO DAILY 10/01/22 10/02/22 melatonin 3 mg capsule 3 mg PO HS PRN 10/01/22 10/01/22 multivitamin 1 tab PO DAILY 10/01/22 10/02/22 olopatadine 0.1 % eye drops 1 drp ophthalmic (eye) BID 10/01/22 10/02/22 omega-3 fatty acids-vitamin E 1 cap PO DAILY 10/01/22 10/02/22 1,000 mg capsule potassium chloride 20 mEq 20 meq PO BID 10/01/22 10/02/22 tablet,extended release(part/cryst) (Klor-Con M) rosuvastatin 20 mg tablet (Crestor) 20 mg PO DAILY 10/01/22 10/02/22 sumatriptan succinate 50 mg tablet See Rx Instructions PO .COMPLEX 10/01/22 10/02/22 (Imitrex) Allergies Allergy/AdvReac Type Severity Reaction Status Date / Time adhesive Allergy Verified 06/01/24 22:12 latex Allergy rash, hives Verified 06/01/24 22:12 lisinopril Allergy Verified 06/01/24 22:12 Penicillins Allergy Verified 06/01/24 22:12 Review of Systems Status of ROS: Reports: 10 or more systems reviewed and unremarkable except as noted in History and below [facility] Medical History 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 - Drug-induced polyneuropathy (ICD-10) Mild intermittent asthma ?J45.20 - Mild intermittent asthma, uncomplicated (ICD-10) Gilbert disease ?E80.4 - Gilbert syndrome (ICD-10) Hypertension ?I10 - Essential (primary) hypertension (ICD-10) Peripheral neuropathy ?G62.9 - Polyneuropathy, unspecified (ICD-10) Colon cancer ?C18.9 - Malignant neoplasm of colon, unspecified (ICD-10) Mixed hyperlipidemia ?E78.2 - Mixed hyperlipidemia (ICD-10) Impaired fasting glucose ?R73.01 - Impaired fasting glucose (ICD-10) Allergic rhinitis ?J30.9 - Allergic rhinitis, unspecified (ICD-10) Migraine ?G43.909 - Migraine, unspecified, not intractable, without status migrainosus (ICD-10) Surgical History Hx of umbilical hernia repair ?Z98.890 - Other specified postprocedural states (ICD-10) ?Z87.19 - Personal history of other diseases of the digestive system (ICD-10) Hx of colectomy ?Z90.49 - Acquired absence of other specified parts of digestive tract (ICD-10) Hx of vasectomy ?Z98.52 - Vasectomy status (ICD-10) Social History Smoking Status: Never smoker Do you use any of these nicotine containing products: None How often do you have a drink containing alcohol: monthly or less Alcohol type: beer, wine and hard liquor How many standard drinks containing alcohol do you have on a typical day: 1 or 2 How often do you have six or more drinks on one occasion: Never AUDIT-C Alcohol total score: 1 Non-prescribed substance use: denies use Caffeine: Yes Exam Narrative: Exam Narrative: Vital signs reviewed and normal. In general, alert, well-appearing elderly male. He looks comfortable. Heart: Regular rate and rhythm without murmur. Lungs: Clear. Abdomen: He has a midline incision with Dermabond overlying. There is a little bit of pam-incisional bruising. The dressing was soaked through, but this was simply a flat Band-Aid type dressing. There was apparently some gauze on top of that which was also bloody which the nurse removed. There is a pinpoint area where blood seems to be skating on the upper most portion of the incision, I do not see any swelling or evidence of underlying hematoma. There is no active bleeding at this time. Abdomen is otherwise nontender without obvious masses. Const: Vital Signs, click to edit/add: Vital Signs - 24 hr 06/01/24 21:19 06/01/24 22:20 06/01/24 22:21 Temperature 99.1 F Pulse Rate 77 77 Pulse Rate [Pulse Oximeter] 84 Respiratory Rate 16 18 Blood Pressure 143/91 H Blood Pressure [Le ft Upper Arm] 117/81 Pulse Oximetry 96 95 96 Oxygen Delivery Me thod Room Air Course Course ED Course: Given his history, I did recommend that we do a CT scan just evaluate for more significant internal bleeding. Hemoglobin is pending along with other basic blood work and coags. Block home. Case discussed with the on-call surgeon at [facility]. Discussed with him that there is this pinpoint area with bleeding, hemoglobin was 12.6. He overall was not concerned, he says he reviewed the surgeon's note from [facility], apparently they had noticed a little bit of bleeding from that spot earlier today as well. CT scan by my review did not show any large fluid collections in the abdominal wall or peritoneal space. There was note made of a 3 cm x 3 cm ovoid hyperechoic structure posterior to the rectum in the presacral space. Patient says he did have a CT scan in March, apparently the radiologist was not able to find this for comparison so it is unclear whether this is new, it could be hematoma but a mass cannot be ruled out. I have discussed all this with the patient and his , I gave them a copy of her CT scan report. Discussed that if there surgeon is able to track down that prior CT and compare that to we can determine whether this is new or not, absent that, he will need close interval follow-up through his primary doctor Dr. Lao. In terms of the bleeding, I anticipate this is going to continue to ooze a little bit particularly when he moves. He can change the dressing as needed. If he has more significant bleeding, the wound opens up, he has increased pain, fever, weakness or lightheadedness, would recommend return to the ER. Otherwise I have asked him to check in with his surgeon tomorrow. Other labs reviewed here and normal. Vital Signs Vital signs: Initial Vital Signs Temperature 99.1 F 06/01/24 21:19 Temperature Source Temporal Artery Scan 06/01/24 21:19 Pulse Rate 84 06/01/24 21:19 Respiratory Rate 16 06/01/24 21:19 Blood Pressure 117/81 06/01/24 21:19 Blood Pressure Mean 93 06/01/24 21:19 Blood Pressure Position Sitting 06/01/24 21:19 Pulse Oximetry 96 06/01/24 21:19 Oxygen Delivery Method Room Air 06/01/24 21:19 Vital Signs Temperature 99.1 F 06/01/24 21:19 Pulse Rate 84 06/01/24 21:19 Respiratory Rate 16 06/01/24 21:19 Blood Pressure 117/81 06/01/24 21:19 Pulse Oximetry 96 06/01/24 21:19 Oxygen Delivery Method Room Air 06/01/24 21:19 Temperature 99.1 F 06/01/24 21:19 Pulse Rate 77 06/01/24 22:21 Respiratory Rate 18 06/01/24 22:20 Blood Pressure 143/91 H 06/01/24 22:20 Pulse Oximetry 96 06/01/24 22:21 Oxygen Delivery Method Room Air 06/01/24 21:19 Medical Decision Making Lab Data Lab results reviewed: Yes I reviewed the patient's lab results Labs: Lab Results 06/01/24 Range/Units 21:27 WBC 8.37 (4.50-11.00) K/uL RBC 4.03 L (4.30-5.90) m/uL Hgb 12.6 L (13.5-17.5) gm/dL Hct 36.8 L (37.0-53.0) % MCV 91 (80-100) fL MCH 31 (26-34) pg MCHC 34 (32-36) gm/dL RDW Coeff of Cliff 13.1 (11.5-15.5) % Plt Count 159 (140-440) K/uL Neut % (Auto) 68.8 (42.0-72.0) % Lymph % (Auto) 19.8 L (20-44) % [place] % (Auto) 9.9 (0.0-11.0) % Eos % (Auto) 1.3 (0.0-7.0) % Baso % (Auto) 0.2 (0.0-3.0) % Neut # (Auto) 5.75 (1.7-7.0) K/uL Lymph # (Auto) 1.70 (0.90-2.90) K/uL [place] # (Auto) 0.80 (0.00-0.90) K/UL Eos # (Auto) 0.11 (0.00-0.50) K/uL Baso # (Auto) 0.02 (0.00-0.30) K/uL Abs Immat Gran (auto) 0.00 (0.00-0.30) K/uL Imm/Tot Granulo (auto) 0.0 % INR 0.98 (0.91-1.10) APTT 30 (23-33) Seconds Imaging Data CT scan - abdomen: Attestation: I have reviewed the pertinent imaging results. Radiologist's impression: Patient: MAN ALEXANDER Facility: [facility] RIS Site . Site : 1950 Study: CT-Abdomen/Pelvis W/ 101CC ISOVUE 370-06/01/2024 10:17:21 PM Ordering Physician: Estee Funes Final Report: INDICATION: Postop bleeding. Hernia repair yesterday. TECHNIQUE: CT abdomen and pelvis acquired with 101 cc of Isovue 370 IV contrast. COMPARISON: None. FINDINGS: Lower chest: Unremarkable. Liver: Unremarkable. Normal in size and attenuation. No suspicious masses. Gallbladder and bile ducts: Cholelithiasis. No inflammation or biliary ductal dilation. Pancreas: Unremarkable. No mass or inflammation. Spleen: Unremarkable. Normal in size. No masses. Adrenal glands: Unremarkable. No nodules. Kidneys: 1 cm nonobstructing stone within the left kidney. No hydronephrosis. GI tract: Anastomosis at the rectosigmoid junction. Distal colon diverticulosis. No pericolonic inflammation. No bowel obstruction. Normal appendix. Vasculature: Normal caliber abdominal aorta with mild atherosclerotic calcification. Mesenteric arteries are patent. Lymph nodes: No lymphadenopathy. Peritoneum/Abdominal Wall: No free air. Recent postsurgical changes of the lower anterior abdominal wall with subcutaneous emphysema and fat stranding. Postsurgical changes of the left inguinal canal, compatible with hernia repair. Small volume free fluid in the pelvis. 2.9 x 1.6 x 3.2 cm hyperdense ovoid lesion in the presacral soft tissues posterior to the rectum. Pelvis: Unremarkable. Bones: Unremarkable for age. IMPRESSION: 1. Recent postoperative changes of left inguinal hernia repair. 2. 3.2 x 2.9 x 1.6 cm hyperdense ovoid lesion in the presacral soft tissues posterior to the rectum. This could represent a postoperative hematoma; however, a neoplasm/metastatic disease can not be excluded. No prior study available to evaluate for the acuity of this finding. Recommend short interval follow-up. 3. 1 cm nonobstructing left nephrolith. 4. Diverticulosis without diverticulitis in the setting of possible prior sigmoidectomy. Discharge Plan Discharge Clinical Impression: Post-op bleeding Patient Disposition: Home, Self-Care Condition: Stable Instructions: Postoperative Bleeding (ED) Additional Instructions: You may need to change the dressing over the next day or 2 as I think this will probably continue to ooze. If you have more significant bleeding, if the wound opens up more significantly, you have worsening abdominal pain, feel lightheaded or faint, have fevers, or generally feel you are not doing well, return at any time for re-evaluation. Please check in with your surgeon tomorrow to let him know what is going on. I spoke with the on-call surgeon yaw who did not find anything overly concerning with your presentation. Your hemoglobin tonight was 12.6. As discussed, there is an incidental finding of a lesion in the presacral area on your CT scan, if a previous CT scan can be found to compare this to that might help clarify things. Otherwise, this will need to be followed up closely by her primary doctor. Prescriptions: No Action albuterol sulfate [ProAir HFA] 90 mcg/actuation HFA aerosol inhaler 2 inh inhalation Q4H PRN aspirin 81 mg tablet,delayed release (DR/EC) 81 mg PO DAILY cholecalciferol (vitamin D3) 25 mcg (1,000 unit) capsule 25 mcg PO DAILY docusate sodium [Colace] 100 mg capsule 100 mg PO BID epinephrine [EpiPen] 0.3 mg/0.3 mL auto-injector 0.3 ml IM Q5-15M PRN Rx Instructions: do not exceed 3 doses per episode famotidine [Pepcid] 20 mg tablet 20 mg PO BID fluticasone propionate [Flovent HFA] 220 mcg/actuation HFA aerosol inhaler 2 inh inhalation BID hydrochlorothiazide 25 mg tablet 25 mg PO DAILY loratadine [Claritin] 10 mg tablet 10 mg PO DAILY losartan [Cozaar] 100 mg tablet 100 mg PO DAILY melatonin 3 mg capsule 3 mg PO HS PRN multivitamin Tablet 1 tab PO DAILY olopatadine 0.1 % drops 1 drp ophthalmic (eye) BID Rx Instructions: separate doses by at least 6-8 hours omega-3 fatty acids-vitamin E 1,000 mg capsule 1 cap PO DAILY potassium chloride [Klor-Con M20] 20 mEq tablet,ER particles/crystals 20 meq PO BID rosuvastatin [Crestor] 20 mg tablet 20 mg PO DAILY sumatriptan succinate [Imitrex] 50 mg tablet See Rx Instructions .ROUTE .COMPLEX Rx Instructions: take 1 tab at onset of headache; if no relief may repeat 1 tab after at least 2 hrs; max = 4 tabs/24 hr ascorbic acid (vitamin C) [Vitamin C] 500 mg tablet 500 mg PO DAILY Follow Up/Referrals: Ariana Lao MD [Primary Care Provider] - Stand Alone Forms: [employer] Info Instructions
[2024-06-01 21:57] LABS: INR 0.98 (0.91-1.10); Prothrombin Time 13.8 Seconds
[2024-06-01 21:58] LABS: Partial Thromboplastin Time* 30 Seconds (23-33)
[2024-06-01 21:59] LABS: Slide Review Reflex No
[2024-06-01 22:20] VITALS: BP 143/91; PULSE 77; RESP 18; O2SAT 95
[2024-06-01 22:21] VITALS: PULSE 77; O2SAT 96
== END 2024-06-01 23:28 | disposition home or self-care (01) ==
PROVIDERS: Emergency Provider Emergency Medicine; PCP Family Medicine
DX: L76.22 Postprocedural hemorrhage of skin and subcutaneous tissue following other procedure (principal)
CPT/HCPCS: 36415; 74177; 85025; 85610; 85730; 99283; 99284; 99285; Q9967

== ENCOUNTER 2024-09-02 10:30 | Outpatient (RCR) | payer MEDICARE, BC, SELFPAY | END 2024-12-31 23:59 | disposition home or self-care (01) | PROVIDERS: PCP Family Medicine; Visit Provider Family Medicine | DX: Z48.89 Encounter for other specified surgical aftercare (principal); R53.1 Weakness; R27.8 Other lack of coordination; R29.3 Abnormal posture; Z87.19 Personal history of other diseases of the digestive system; Z51.89 Encounter for other specified aftercare | CPT/HCPCS: 97110; 97162 ==